=== PATIENT | female | born 1945 | race Caucasian/White ===

== ENCOUNTER → 2016-12-24 | Outpatient (CLI) | payer OTHER ==
[~2016-12-24] MED LIST: ACET-1256 PO; ACET-24 PO; ALBU1AER9 INH; ASPCH81X PO; ATROPINE SULFATE 0.1 MG/ML 5ML SYR ONE; CHOL100010 PO; DOBUTamine HCL 12.5 MG/ML 20 ML VIAL ONE; EZET10TA63 PO; FELO5TAB PO; FLUO40CA8 PO; FLVHFA110 INH; GABA-113 PO; HYDR50TA3 PO; LEVO25TA5 PO; LOSA50TA6 PO; LVNIS40 SQ; METOPROLOL TARTRATE 1 MG/ML VIAL ONE; NTRGSL/4 UT; OMEP20CA59 PO; ONDA8TAB12 PO; OXYSR10 PO; PERFLUTREN LIPID MICROSPHERE (DEFINITY) IV ONE; ROSU40TA PO; RXC5 PO; TRAM-10 PO; TRMCR515 TOP; oxygen
[2016-12-24 11:07] VITALS: BP 122/60; PULSE 83
--- NOTE | 2016-12-24 13:05 | DOBUTAMINE ECHO ---
*NOTICE TO RECEIVING LIBERTARIAN AGENCY This information is strictly Confidential and protected under [place] law. [place] law prohibits you from making any further disclosure of this information unless further disclosure is expressly permitted by the written consent of the person to whom it pertains or is authorized by law. A general authorization for the release of medical or other information is not sufficient for this purpose. Hospital accepts no responsibility if the information is made available to any other person, INCLUDING THE PATIENT. Interpretation Summary * Name: BEATA CALDERON Study Date: 12/24/2016 09:32 AM BP: 146/62 mmHg * Patient Location: [facility] HR: 64 * : 1945 (M/d/yyyy) Gender: Female Height: 63 in * Age: 71 yrs Ethnicity: [place] Weight: 249 lb * Ordering Physician: Bertin Bender DO * Referring Physician: Bertin Bender DO * Performed By: Angel Dent RCS * * Reason For Study: CAD, HTN, TOBACCO USE, CAROTID STENOSIS, PRE-OP * BSA: 2.1 m2 * -- Conclusions -- * Nonischemic dobutamine stress echocardiogram. * No arrhythmias. * Normal HR and BP resposne to dobutamine infusion. * At rest, normal LV chamber size with midl concentric LVH. * Normal LV systolic function, EF 55-60%. * No segmental left ventricular wall motion abnormalities are noted. * Grade I diastolic dysfunction. * No significant valvular pathology. Procedure Details * DOBUTAMINE ECHO, CPT#74831 * ECHO DOPPLER, CPT #96750 * ECHO COLOR FLOW, CPT #98277 * A contrast injection of Definity was performed to improve assessment of LV function. * Contrast was injected into an intravenous site in the left arm. * One vial of Definity ultrasound contrast was diluted in normal saline to a total volume of 10 ml. A total of '10' ml of solution was administered during imaging. * Lot # [id number] of Definity utilized for procedure. * Expiration date . * The attending nurse who injected the contrast agent was Morenita Hauser RN. Left Ventricle * The left ventricle is normal in size. * There is mild concentric left ventricular hypertrophy. * Left ventricular systolic function is normal. * Ejection Fraction = 55-60%. * No segmental left ventricular wall motion abnormalities are noted. * Resting wall motion: Normal. Stress wall motion: Appropriate increase in Left ventricular systolic function and decrease in cavity size. No stress induced segmental wall motion abnormalities. Right Ventricle * The right ventricular cavity size is normal (basal dimension <4.2 cm in right ventricular apical 4-chamber view). * The right ventricular systolic function is normal as assessed by tricuspid annular plane systolic excursion (TAPSE) (normal >1.5 cm). Atria * The left atrial size is normal. * Right atrial size is normal. * No ASD detected; PFO is not assessed. Mitral Valve * The mitral valve is normal in structure and function. Tricuspid Valve * The tricuspid valve is normal in structure and function. Aortic Valve * The aortic valve is not well visualized. * No hemodynamically significant valvular aortic stenosis. * There is no significant aortic regurgitation. Pulmonic Valve * The pulmonary valve is not well seen, but the Doppler examination is normal without significant regurgitation or stenosis. Great Vessels * The aortic root is normal size. Pericardium * There is no pericardial effusion. Stress Parameters * Normal baseline electrocardiogram. * Stress ECG: No ST changes. No arrhythmias. * No arrhythmia were noted with stress. * The stress portion of this study was personally supervised by the undersigned interpreting physician. * Rest heart rate was '64' BPM. * Rest blood pressure was '146/62' * Maximum heart rate achieved was 151 bpm. * Maximum heart rate was 101 % of maximum age-predicted heart rate. * Maximum blood pressure was '146/62' * Maximum Dobutamine infusion rate was '40' mcg/kg/min. * A total of 0.25 mg of intravenous Atropine was used to supplement Dobutamine for heart rate response. * Dobutamine infusion was terminated due to achieving target heart rate * A total of 5 mg of IV Metoprolol was administered to reverse Dobutamine-induced tachycardia. * The patient did not exhibit any symptoms during drug infusion. Left Ventricular Diastolic Function * Grade I diastolic dysfunction, (abnormal relaxation pattern). MMode 2D Measurements and Calculations IVSd 1.3 cm LVIDd 4.3 cm LVIDs 2.9 cm LVPWd 1.3 cm IVS/LVPW 1.1 FS 31.5 % EDV(Teich) 83.5 ml ESV(Teich) 33.6 ml EF(Teich) 59.8 % EDV(cubed) 80.0 ml ESV(cubed) 25.7 ml EF(cubed) 67.9 % LV mass(C)d 208.9 grams LV mass(C)dI 98.4 grams/m\S\2 SV(Teich) 49.9 ml SI(Teich) 23.5 ml/m\S\2 SV(cubed) 54.3 ml SI(cubed) 25.6 ml/m\S\2 LVAd ap4 23.9 cm\S\2 LVLd ap4 8.2 cm EDV(MOD-sp4) 57.4 ml EDV(sp4-el) 59.0 ml LVAs ap4 14.8 cm\S\2 LVLs ap4 7.7 cm ESV(MOD-sp4) 24.0 ml ESV(sp4-el) 24.1 ml EF(MOD-sp4) 58.3 % EF(sp4-el) 59.1 % LVAd ap2 31.8 cm\S\2 LVLd ap2 8.4 cm EDV(MOD-sp2) 101.7 ml EDV(sp2-el) 102.9 ml LVAs ap2 15.6 cm\S\2 LVLs ap2 6.8 cm ESV(MOD-sp2) 29.9 ml ESV(sp2-el) 30.5 ml EF(MOD-sp2) 70.6 % EF(sp2-el) 70.4 % LVLd %diff 1.6 % EDV(MOD-bp) 76.5 ml LVLs %diff -13.74 % ESV(MOD-bp) 28.5 ml EF(MOD-bp) 62.8 % SV(MOD-sp4) 33.4 ml SI(MOD-sp4) 15.8 ml/m\S\2 SV(MOD-sp2) 71.8 ml SI(MOD-sp2) 33.8 ml/m\S\2 SV(MOD-bp) 48.1 ml SI(MOD-bp) 22.6 ml/m\S\2 SV(sp4-el) 34.9 ml SI(sp4-el) 16.4 ml/m\S\2 SV(sp2-el) 72.4 ml SI(sp2-el) 34.1 ml/m\S\2 Doppler Measurements and Calculations MV E max lynne 86.9 cm/sec MV A max lynne 120.4 cm/sec MV E/A 0.72 MV dec time 0.27 sec Ao V2 max 137.2 cm/sec Ao max PG 7.5 mmHg Ao max PG (full) 3.3 mmHg LV V1 max PG 4.3 mmHg LV V1 max 103.2 cm/sec
== END | disposition home or self-care (01) ==
LOC: C.CPL 08:38
PROVIDERS: ATTEND Internal Medicine Cardiovascular Disease
DX: Z01.810 Encounter for preprocedural cardiovascular examination (principal); I25.10 Atherosclerotic heart disease of native coronary artery without angina pectoris; F17.200 Nicotine dependence, unspecified, uncomplicated; I10 Essential (primary) hypertension; I65.23 Occlusion and stenosis of bilateral carotid arteries

== ENCOUNTER 2016-12-29 06:23 | Inpatient (IN) | payer OTHER ==
--- NOTE | 2016-12-20 16:32 | History and Physical ---
History & Physical Date Dec 20, 2016. Chief Complaint bilateral knee pain History of Present Illness Carrie is a pleasant 71-year-old female who presents for preoperative evaluation prior to bilateral knee replacements. Patient states that they have been having pain in this knee for many years now, which has gradually worsened, it has now gotten to the point it is affecting her daily activities including walking, standing, going up and down steps. Patient has tried and failed conservative measures including previous viscosupplementation and PO NSAIDs with no relief. At this point in time, patient has failed conservative measures and would like to proceed with bilateral knee replacements. Past Medical/Surgical History Medical Problems: (1) Benign hypertension (2) Bilateral tubal ligation (3) Contusion of knee, left (4) Contusion of left knee (5) Diabetes mellitus (6) Dyslipidemia (7) GERD (gastroesophageal reflux disease) (8) Hypothyroidism (9) Left knee sprain (10) Left knee sprain (11) Myocardial infarction (12) PNA (pneumonia) (13) Pneumonia (14) spinal surgery (15) Tonsillectomy Additional History Hepatic Disease: No Allergies Coded Allergies: No Known Allergies (Verified , 12/15/15) Home Medications Scheduled Aspirin (Aspirin Chewable), 162 MG PO QAM Cholecalciferol (Vitamin D), 1,000 INTER.UNIT PO QAM Ezetimibe (Zetia), 10 MG PO QAM Felodipine (Plendil), 5 MG PO QAM Fluoxetine (Prozac), 40 MG PO QAM Gabapentin (Neurontin), 300 MG PO TID Hydrochlorothiazide (Hctz), 50 MG PO QAM Levothyroxine Sodium (Levothyroxine Sodium), 25 MCG PO DAILY Losartan Potassium (Cozaar), 50 MG PO QAM Rosuvastatin Calcium (Crestor), 40 MG PO QAM Scheduled PRN Albuterol (Proair Hfa), 2 PUFFS INH QID PRN for Shortness of Breath Fluticasone Propionate (Flovent Hfa), 2 PUFFS INH BID PRN for Shortness of Breath Nitroglycerin (Nitrostat), 0.4 MG UT UD PRN for Chest Pain Omeprazole (Prilosec), 20 MG PO DAILY PRN for Reflux Tramadol (Ultram), 50 MG PO QID PRN for Pain Physical Examination Skin: warm/dry, no rash Eyes: normal inspection, EOMI, sclerae normal ENT: normal ENT inspection, pharynx normal Head: normocephalic, atraumatic Neck: supple, no adenopathy, trachea midline Respiratory/Chest: lungs clear, normal breath sounds, no respiratory distress Abdomen / GI: normal bowel sounds, non tender Addiitonal Comments: Knee Exam Knee ROM L * Active ROM - Flexion: 125 degrees, Extension: 5 degrees, Factors: pain, Description: active painful range of motion. Passive ROM - Flexion: 130 degrees, Extension: 0 degrees, Factors: pain, Description: passive painful range of motion. Knee ROM R * Active ROM - Flexion: 125 degrees, Extension: 5 degrees, Factors: pain, Description: active painful range of motion. Passive ROM - Flexion: 130 degrees, Extension: 0 degrees, Factors: pain, Description: passive painful range of motion. Strength LE Normal Strength Description - Normal lower extremity: Bilateral. Knee * Inspection - Gait: antalgic. Alignment - Right: neutral, Left: neutral. Ecchymosis - Right: negative, Left: negative. Effusion - Right: mild, Left: mild. Swelling - Right: mild, Left: mild. Flexibility - Right: normal, Left: normal. Maximum tenderness - Right: medial joint line, lateral joint line, patella, Left: medial joint line, lateral joint line, patella. Patella exam - Crepitation - Right: mild, Left: mild. Patella position - Right: neutral, Left: neutral. Tilt - Right: equal, Left: equal. [facility] - lateral - Right: Positive, Left: Positive. Santi's - medial - Right: Positive, Left: Positive. Knee Comments No calf tenderness Knee Normal Inspection - Atrophy - Right: Absent, Left: Absent. Skin - Right: Normal, Left: Normal. Patella exam - Apprehension - Right: Negative, Left: Negative. Q-angle - Right: Normal, Left: Normal. Ron's - Right: Negative, Left: Negative. Posterior drawer - Right: Negative, Left: Negative. Anterior drawer - Right: Negative, Left: Negative. Valgus stress - Right: Negative, Left : Negative. Varus stress - Right: Negative, Left: Negative. Extensor lag - Right : Normal, Left: Normal. Knee Xray: Xrays reviewed of bilateral knees showing findings consistent with degenerative joint disease including joint space narrowing, subchondral sclerosis and peripheral osteophyte formation. no acute bony pathology Impression: degenerative joint disease of bilateral knees with no acute bony pathology noted. Diagnosis Bilateral knee DJD -Further care discussed with patient and at this point in time has failed conservative measures and would like to proceed with bilateral total knee replacements. Plan on discharge will be possible rehab placement. DVT prophalaxis with TEDs, SCDs and will also place on aspirin 325 mg p.o. b.i.d. for a month postop. Patient will have follow up appointment in our office two weeks post op for staple/suture removal and re-evaluation. Patient otherwise has no other questions or concerns.
[2016-12-21 11:02] VITALS: BMI 43.0
--- NOTE | 2016-12-21 11:45 | PAT Medication Instructions ---
Service Date Dec 21, 2016. Current Home Medication List Acetaminophen (Tylenol), 2 TAB PO Q8 PRN for Pain Albuterol (Proair Hfa), 2 PUFFS INH QID PRN for Shortness of Breath Aspirin (Aspirin Chewable), 162 MG PO QAM Cholecalciferol (Vitamin D), 1,000 INTER.UNIT PO QAM Ezetimibe (Zetia), 10 MG PO QAM Felodipine (Plendil), 5 MG PO QAM Fluoxetine (Prozac), 40 MG PO QAM Fluticasone Propionate (Flovent Hfa), 2 PUFFS INH BID PRN for Shortness of Breath Gabapentin (Neurontin), 300 MG PO TID Hydrochlorothiazide (Hctz), 50 MG PO QAM Levothyroxine Sodium (Levothyroxine Sodium), 25 MCG PO QAM Losartan Potassium (Cozaar), 50 MG PO QAM Nitroglycerin (Nitrostat), 0.4 MG UT UD PRN for Chest Pain Omeprazole (Prilosec), 20 MG PO DAILY PRN for Reflux Rosuvastatin Calcium (Crestor), 40 MG PO QAM Tramadol (Ultram), 50 MG PO QID PRN for Pain Triamcinolone Acet (Triamcinolone Acetonide), 1 APPLN TOP BID PRN for Affected Skin Folds Medication Instructions For Your Scheduled Surgery Check with surgeon/ichthyologist for instructions: Aspirin (Aspirin Chewable), 162 MG PO QAM - Hold the following medications 24 hours prior to surgery: Triamcinolone Acet (Triamcinolone Acetonide), 1 APPLN TOP BID PRN for Affected Skin Folds - Hold the following medications the morning of surgery: Losartan Potassium (Cozaar), 50 MG PO QAM Hydrochlorothiazide (Hctz), 50 MG PO QAM Cholecalciferol (Vitamin D), 1,000 INTER.UNIT PO QAM - Take the following medications the morning of surgery with a sip of water: Nitroglycerin (Nitrostat), 0.4 MG UT UD PRN for Chest Pain (if needed) Omeprazole (Prilosec), 20 MG PO DAILY PRN for Reflux (if needed) Rosuvastatin Calcium (Crestor), 40 MG PO QAM Tramadol (Ultram), 50 MG PO QID PRN for Pain (okay to take up to 4 hours prior to surgery if needed) Levothyroxine Sodium (Levothyroxine Sodium), 25 MCG PO QAM Fluoxetine (Prozac), 40 MG PO QAM Fluticasone Propionate (Flovent Hfa), 2 PUFFS INH BID PRN for Shortness of Breath (if needed) Gabapentin (Neurontin), 300 MG PO TID Ezetimibe (Zetia), 10 MG PO QAM Albuterol (Proair Hfa), 2 PUFFS INH QID PRN for Shortness of Breath (use if needed; bring with you to hospital morning of surgery) Felodipine (Plendil), 5 MG PO QAM Acetaminophen (Tylenol), 2 TAB PO Q8 PRN for Pain (if needed) - Take the following medications as scheduled the night before surgery: Tramadol (Ultram), 50 MG PO QID PRN for Pain (if needed) Nitroglycerin (Nitrostat), 0.4 MG UT UD PRN for Chest Pain (if needed) Fluticasone Propionate (Flovent Hfa), 2 PUFFS INH BID PRN for Shortness of Breath (if needed) Albuterol (Proair Hfa), 2 PUFFS INH QID PRN for Shortness of Breath (if needed) Acetaminophen (Tylenol), 2 TAB PO Q8 PRN for Pain (if needed) If you have any questions please call us at [phone] or [phone] or [phone]
[2016-12-21 11:50] LABS: BUN/CREATININE RATIO 16.5 (10-20); CREATININE 0.82 mg/dl (0.60-1.20); POTASSIUM 4.4 mmol/L (3.5-5.1)
[2016-12-21 12:27] LABS: BASO % 0.2 %; BASO ABS # 0.02 K/uL (0-0.2); COMPLETE YES; EOS % 2.8 %; HEMATOCRIT 47.2 % (37-47); IG% 0.2 %; LYMPH % 34.3 %; LYMPH ABS # 3.28 K/uL (1.2-3.4); MEAN CELL VOLUME 91.1 fL (80-100); MEAN CORPUSCULAR HEMOGLOBIN 30.3 pg (25-34); MEAN CORPUSCULAR HGB CONC 33.3 g/dl (32-36); MEAN PLATELET VOLUME 10.9 fL (7.4-10.4); MONO % 6.7 %; NEUT % 55.8 %; PLATELET COUNT 224 K/uL (130-400); RED BLOOD COUNT 5.18 M/uL (4.2-5.4); WHITE BLOOD COUNT 9.56 K/uL (4.8-10.8)
[2016-12-21 12:34] LABS: URINE APPEARANCE CLEAR (CLEAR); URINE BILIRUBIN NEG (NEG); URINE COLOR YELLOW; URINE NITRITE NEG (NEG); URINE SPECIFIC GRAVITY 1.011 (1.000-1.030); UROBILINOGEN NEG (NEG); ZZUR CULT IF INDIC CLEAN CATCH NO
[2016-12-21 12:41] LABS: MANUAL MICROSCOPIC REQUIRED? NO; REVIEW REQ? NO
[2016-12-21 12:44] LABS: PARTIAL THROMBOPLASTIN RATIO 1.1; PROTHROMBIN TIME (PATIENT) 10.7 SECONDS (9.0-12.0)
[2016-12-21 13:26] LABS: ESTIMATED AVERAGE GLUCOSE 134 mg/dl; HA1C FLAG Normal (Normal)
[2016-12-21 13:28] LABS: CALCIUM 9.1 mg/dl (8.5-10.1)
[~2016-12-29] VITALS: Ht 162.6 cm; Wt 113.3 kg
[2016-12-29] VITALS (11 sets, daily range): BP systolic 124–147; BP diastolic 66–81; PULSE 57–67; TEMP 36.3–36.7; O2SAT 87–98; BMI 43.0
[~2016-12-29 06:23] MED LIST changes: -ACET-24 PO; +ACETAMINOPHEN 500 MG TAB PO SCH; -ATROPINE SULFATE 0.1 MG/ML 5ML SYR ONE; +CEFAZOLIN 2000 MG/60 ML D5W 60 ML IV SCH; +CeleBREX 200 MG CAP PO SCH; +DEXAMETHASONE 4 MG TAB PO SCH; -DOBUTamine HCL 12.5 MG/ML 20 ML VIAL ONE; +FAMOTIDINE 20 MG TAB PO SCH; +GABAPENTIN 300 MG CAP PO SCH; +LACTATED RINGER'S 1000ML 1,000 ML IV SCH; +LACTATED RINGER'S 1000ML 500 ML IV ONE; -LVNIS40 SQ; +METOCLOPRAMIDE HCL 10 MG TAB PO SCH; -METOPROLOL TARTRATE 1 MG/ML VIAL ONE; -ONDA8TAB12 PO; -OXYSR10 PO; -PERFLUTREN LIPID MICROSPHERE (DEFINITY) IV ONE; +ROPIVACAINE 5MG/ML 30 ML 150 MG, BUPIVACAINE/EPINEPHR 0.5% MPF 30 ML, KETOROLAC TROMETH... INFIL SCH; -RXC5 PO; -oxygen
[2016-12-29] MEDS: TRANEXAMIC ACID INJ 1,000 MG in SODIUM CHLORIDE 0.9% 100ML 100 ML IV SCH ×2 (06:30→08:00)
[2016-12-29] MEDS ORDERED: BUPIVACAINE 0.5 % 5 MG/1 ML PF 10ML VIAL ONE (06:33)
[2016-12-29] MEDS ORDERED: DEXAMETHASONE SOD INJ 4 MG/ML VIAL ONE (06:34)
[2016-12-29] MEDS ORDERED: BUPIVACAINE/EPINEPHRINE 0.25% 1:200,000 30 ML VIAL ONE (06:34)
--- NOTE | 2016-12-29 06:50 | History & Physical Bridge Note ---
H&P Re-Evaluation Bridge Note: I have examined the patient, reviewed the History & Physical and in the interval since the performance of the History & Physical I have noted the following changes of clinical significance: No changes noted
[2016-12-29] MEDS ORDERED: MIDAZOLAM HCL 1 MG/ML 2ML VIAL ONE ×2 (06:59)
[2016-12-29] MEDS ORDERED: POVIDONE-IODINE OP SOLN 30 ML BTL ONE (07:11)
[2016-12-29] MEDS ORDERED: BACITRACIN 50000 UNIT VIAL ONE ×2 (07:11→08:06)
[2016-12-29] MEDS ORDERED: ORTHO JOINT ANESTHETIC ONE (08:06)
[2016-12-29] MEDS ORDERED: ATROPINE SULFATE 0.1 MG/ML 5ML SYR IV PRN (08:45)
[2016-12-29] MEDS ORDERED: PROMETHAZINE HCL INJ 6.25 MG in SODIUM CHLORIDE 0.9% 50ML 50 ML IV PRN (08:45)
[2016-12-29] MEDS ORDERED: FENTANYL CITRATE INJ 50 MCG/1 ML 2 ML VIAL IV PRN (08:45)
[2016-12-29] MEDS ORDERED: EpHEDrine SULFATE INJ 50 MG/ML AMP IV PRN (08:45)
[2016-12-29] MEDS ORDERED: ONDANSETRON INJ 2 MG/ML 2 ML VIAL IV PRN ×2 (08:45→11:00)
--- NOTE | 2016-12-29 10:18 | [facility] Operative Report ---
Operative Report Operative Date Dec 29, 2016. Pre-Operative Diagnosis Bilateral Knee Degenerative Joint Disease Post-Operative Diagnosis DJD with varus alignment bilateral knees Procedure(s) Performed Bilateral total knee Orthoplast Arguello & Nephew nonlocked total knee arthroplasty right size 4 femur 4 tibia Celi 32 patella left size 4 femur 4 tibia 10 Celi [address] Giron Roustabout Hand Surgeon(s) Lenin Morrissey PA-C Estimated Blood Loss 5 mL right knee 5 mL left knee Findings Severe DJD with varus alignment bilateral knees Specimens A: Right Knee Bone and Tissue B: Left Knee Bone and Tissue Drains medium bore Hemovac Anesthesia spinal with bilateral femoral nerve block Complication(s) None Disposition Recovery Room / PACU Indications Severe end-stage DJD with varus alignment bilateral knees Description of Procedure After proper prepping and draping of the bilateral lower extremities, an anterior midline incision was made over the region of the extensor extensor mechanism of the left knee. After meticulous hemostasis was obtained and maintained in subcutaneous tissues a medial parapatellar incision was made The patella was subluxed lateralward the medial lateral gutter were cleaned from any hypertrophic synovitis and scar tissue of the distal femoral block was placed and the distal femoral osteotomy cut was made subsequently the chamfers anterior and posterior osteotomy cuts were made utilizing the 4-in-1 block the tibia was subsequently subluxed anteriorward medial and ateral meniscal remnants were excised in their entirety remnants of the anterior and posterior cruciate ligaments were excised in their entirety excellent exposure of the proximal tibia was obtained the tibial osteotomy guide was placed on the proximal tibial osteotomy cut was made once again the knee was irrigated with copious amounts of sterile saline solution the patella was subsequently everted lateralward thickened scar tissue around the patella was removed the patella was subsequently cut utilizing a freehand technique and was drilled prepared for final preparation and placement of patella socially flexion-extension gaps were checked and the equal and symmetric trials were placed to the appropriate femoral and tibial trials with poly-spacer being placed for equal flexion and extension gaps and full range of motion including extension to 0 and flexion to 140 the trial components after having been taken to recovery range of motion was subsequently removed meticulous hemostasis was obtained and maintained subsequently a knee block injection of joint cocktail including ropivacaine 0.5 % 150 mg. Bupivacaine 0.5% epinephrine 1-200,030 mL's toradol 30 mg dexamethasone 4 mg ketamine 10 mg clonidine 100 micrograms normal saline solution 30 mg was infiltrated into the soft tissues of the posterior knee medial lateral gutters and periosteal synovium special attention was paid to protect neurovascular structures at all times subsequently trial components having been removed the knee was irrigated with sterile saline solution. debris was removed the proximal tibia was subsequently prepared and was made ready for the placement of the tibial component tibial component was also cemented and tamped into position the femoral component was subsequently placed and cemented in the position the patellar component was subsequently cemented in position because hemostasis once again obtained and maintained wound having been thoroughly irrigated with debridement and debridement lavage was performed as well as a medial parapatellar incision closed with #1 Vicryl in interrupted fashion subcutaneous was closed with #2 Vicryl skin was closed with skin clips Next, an anterior midline incision was made over the region of the extensor extensor mechanism of the right knee. After meticulous hemostasis was obtained and maintained in subcutaneous tissues a medial parapatellar incision was made The patella was subluxed lateralward the medial lateral gutter were cleaned from any hypertrophic synovitis and scar tissue of the distal femoral block was placed and the distal femoral osteotomy cut was made subsequently the chamfers anterior and posterior osteotomy cuts were made utilizing the 4-in-1 block the tibia was subsequently subluxed anteriorward medial and ateral meniscal remnants were excised in their entirety remnants of the anterior and posterior cruciate ligaments were excised in their entirety excellent exposure of the proximal tibia was obtained the tibial osteotomy guide was placed on the proximal tibial osteotomy cut was made once again the knee was irrigated with copious amounts of sterile saline solution the patella was subsequently everted lateralward thickened scar tissue around the patella was removed the patella was subsequently cut utilizing a freehand technique and was drilled prepared for final preparation and placement of patella socially flexion-extension gaps were checked and the equal and symmetric trials were placed to the appropriate femoral and tibial trials with poly-spacer being placed for equal flexion and extension gaps and full range of motion including extension to 0 and flexion to 140 the trial components after having been taken to recovery range of motion was subsequently removed meticulous hemostasis was obtained and maintained subsequently a knee block injection of joint cocktail including ropivacaine 0.5 % 150 mg. Bupivacaine 0.5% epinephrine 1-200,030 mL's toradol 30 mg dexamethasone 4 mg ketamine 10 mg clonidine 100 micrograms normal saline solution 30 mg was infiltrated into the soft tissues of the posterior knee medial lateral gutters and periosteal synovium special attention was paid to protect neurovascular structures at all times subsequently trial components having been removed the knee was irrigated with sterile saline solution. debris was removed the proximal tibia was subsequently prepared and was made ready for the placement of the tibial component tibial component was also cemented and tamped into position the femoral component was subsequently placed and cemented in the position the patellar component was subsequently cemented in position because hemostasis once again obtained and maintained wound having been thoroughly irrigated with debridement and debridement lavage was performed as well as a medial parapatellar incision closed with #1 Vicryl in interrupted fashion subcutaneous was closed with #2 Vicryl skin was closed with skin clips.. PA-C was necessary for prepping and drapping as well as wound closure of deep fascia Sub cutaneous tissue and skin and was necessary for the case. A sterile compressive dressings were placed, patient was taken to recovery in stable condition of report dictated by Mack I attest to the content of the Intraoperative Record and any orders documented therein. Any exceptions are noted below. I attest to the content of the Intraoperative Record and any orders documented therein. Any exceptions are noted below.
[2016-12-29] MEDS ORDERED: PROPOFOL IV EMULSION 10 MG/ML 20 ML VIAL IV ONE (10:37)
[2016-12-29] MEDS ORDERED: ALBUTEROL HFA 8 GM INHALER INH PRN (11:00)
[2016-12-29] MEDS ORDERED: BISACODYL 10 MG SUPP PR PRN (11:00)
[2016-12-29] MEDS ORDERED: FLUTICASONE HFA 110MCG INHALER INH PRN (11:00)
[2016-12-29] MEDS ORDERED: NITROGLYCERIN 0.4 MG SL PER TAB CHARGE UT PRN (11:00)
[2016-12-29] MEDS ORDERED: ALUMINUM/MAGNESIUM/SIMETH (MAALOX MAX) 30 ML UDC PO PRN (11:00)
[2016-12-29] MEDS ORDERED: MAGNESIUM HYDROXIDE SUSP 30 ML UDC PO PRN (11:00)
[2016-12-29] MEDS ORDERED: MoRPHine SULFATE 2 MG/ML CARP IV PRN (11:00)
--- NOTE | 2016-12-29 11:43 | DIAGNOSTIC IMAGING REPORT ---
RIGHT KNEE 1 OR 2 VIEWS ROUTINE CLINICAL HISTORY: AP/LATERAL IN PACU RIGHT KNEE Right knee replacement COMPARISON: None. DISCUSSION: Evidence for total right knee replacement. Good contact between prosthetic and underlying bone. Expected soft tissue change. IMPRESSION: Anatomic alignment status post total right knee replacement Electronically signed by: Sy Ernst M.D. 12/29/2016 11:42 AM Dictated Date/Time: 12/29/2016 11:42 AM
--- NOTE | 2016-12-29 11:48 | DIAGNOSTIC IMAGING REPORT ---
LEFT KNEE 1 OR 2 VIEWS ROUTINE CLINICAL HISTORY: AP/LATERAL IN PACU LEFT KNEE COMPARISON: None. DISCUSSION: Evidence for a total left knee replacement. Good contact between prosthetic and underlying bone. Expected soft tissue postoperative change IMPRESSION: Anatomic alignment status post total left knee replacement Electronically signed by: Sy Ernst M.D. 12/29/2016 11:46 AM Dictated Date/Time: 12/29/2016 11:46 AM
[2016-12-29] MEDS: SODIUM CHLORIDE 0.9% 1000ML 1,000 ML IV SCH ×2 (12:10→21:13)
--- NOTE | 2016-12-29 12:40 | Anesthesiology Progress Note ---
Anesthesia Post Op Note Date & Time Dec 29, 2016 at 12:40 Vital Signs Pain Intensity: 0.0 Vital Signs Past 12 Hours Date Time Temp Pulse Resp B/P (MAP) Pulse Ox O2 Delivery O2 Flow Rate FiO2 12/29/16 12:30 60 18 130/71 (90) 98 Nasal Cannula 2.0 12/29/16 12:07 98 Nasal Cannula 2.0 12/29/16 11:59 36.4 16 147/77 (100) 96 Nasal Cannula 2.0 12/29/16 11:50 60 12 159/80 96 Nasal Cannula 2 12/29/16 11:40 36.6 60 12 151/74 96 Nasal Cannula 2 12/29/16 11:30 61 12 155/72 97 Nasal Cannula 2 12/29/16 11:20 65 16 153/75 97 Nasal Cannula 2 12/29/16 11:10 63 10 148/67 99 Mask 10 12/29/16 11:00 65 15 141/63 98 Mask 10 12/29/16 10:53 36.7 62 12 115/57 99 Mask 10 12/29/16 06:47 36.5 66 18 147/81 95 Room Air Notes Mental Status: alert / awake / arousable, participated in evaluation Pt Amnestic to Procedure: Yes Nausea / Vomiting: adequately controlled Pain: adequately controlled Airway Patency, RR, SpO2: stable & adequate BP & HR: stable & adequate Hydration State: stable & adequate Neuraxial Anesthesia: was administered, sensory block is resolving Anesthetic Complications: no major complications apparent
--- NOTE | 2016-12-29 13:07 | Medical Consult ---
Consultation Date of Consultation: Dec 29, 2016. Attending Physician: Bertin Giron D.O. Reason for Consultation: Post Op Medical Management History of Present Illness 71 year old female who is s/p BL TKA today by Dr. Giron. Patient reports increasing knee pain for the past one year. She failed outpatient conservative measures and therefore presented for the planned procedure today. Patient reports her pain is well controlled. She reports some residual numbness to the BLLE. She denies chest pain and shortness of breath. No lightheadedness or dizziness. Denies abdominal pain, nausea, or vomiting. Patient has not voided yet since surgery. Past Medical/Surgical History Medical Problems: (1) Ankle sprain Status: Acute (2) Dyslipidemia Status: Chronic (3) GERD (gastroesophageal reflux disease) Status: Chronic (4) Hypothyroidism Status: Chronic Family History Gynecological problem (cancer) SISTER Social History Smoking Status: Current Every Day Smoker Drug Use: none Allergies Coded Allergies: NSAIDs (Verified Adverse Reaction, Intermediate, Affected kidneys, 12/29/16) Home Medications Tylenol (Acetaminophen) 500 Mg Tab 2 Tab PO Q8 PRN 3 Days Triamcinolone Acetonide (Triamcinolone Acet) 45 Appln/15 Gm Cr 1 Appln TOP BID PRN 30 Days Vitamin D (Cholecalciferol) 1,000 Inter.unit Tab 1,000 Inter.unit PO QAM Aspirin Chewable (Aspirin) 81 Mg Chew 162 Mg PO QAM Proair Hfa (Albuterol) Aers 2 Puffs INH QID PRN Flovent Hfa (Fluticasone Propionate) 120 Puffs/06675 Mcg Aero 2 Puffs INH BID PRN Cozaar (Losartan Potassium) 50 Mg Tab 50 Mg PO QAM Plendil (Felodipine) 5 Mg Tabcr 5 Mg PO QAM Prilosec (Omeprazole) 20 Mg Capcr 20 Mg PO DAILY PRN Prozac (Fluoxetine HCl) 40 Mg Cap 40 Mg PO QAM Hctz (Hydrochlorothiazide) 50 Mg Tab 50 Mg PO QAM Neurontin (Gabapentin) 300 Mg Cap 300 Mg PO TID Zetia (Ezetimibe) 10 Mg Tab 10 Mg PO QAM Crestor (Rosuvastatin Calcium) 40 Mg Tab 40 Mg PO QAM Levothyroxine Sodium 25 Mcg Tab 25 Mcg PO QAM Nitrostat (Nitroglycerin) 0.4 Mg Tab 0.4 Mg UT UD PRN PLACE ONE TABLET UNDER THE TONGUE EVERY 5 MINUTES FOR UP TO 3 DOSES OVER 15 MINUTES IF NEEDED FOR CHEST PAIN Ultram (Tramadol HCl) 50 Mg Tab 50 Mg PO QID PRN PRN PAIN Current Inpatient Medications Current Inpatient Medications Medications (Trade) Dose Ordered Sig/Shivani Route Start Time Stop Time Status Last Admin Dose Admin Cefazolin Sodium 60 ml @ 100 mls/hr PREOP IV 12/29/16 06:00 12/29/16 18:00 12/29/16 08:26 100 MLS/HR Acetaminophen (Tylenol Tab) 1,000 mg PREOP PO 12/29/16 06:00 12/29/16 18:00 12/29/16 07:18 1,000 MG Celecoxib (CeleBREX CAP) 200 mg PREOP PO 12/29/16 06:00 12/29/16 18:00 Dexamethasone (Decadron Tab) 8 mg PREOP PO 12/29/16 06:00 12/29/16 18:00 12/29/16 07:18 8 MG Famotidine (Pepcid Tab) 20 mg PREOP PO 12/29/16 06:00 12/29/16 18:00 12/29/16 07:19 20 MG Gabapentin (Neurontin Cap) 300 mg PREOP PO 12/29/16 06:00 12/29/16 18:00 12/29/16 07:19 300 MG Metoclopramide HCl (Reglan Tab) 10 mg PREOP PO 12/29/16 06:00 12/29/16 18:00 12/29/16 07:19 10 MG Tranexamic Acid 1000 mg/Sodium Chloride 110 ml @ 660 mls/hr TODAY@06,0630 IV 12/29/16 06:00 12/29/16 18:00 12/29/16 08:00 660 MLS/HR Lactated Ringer's 1,000 ml @ 15 mls/hr Q24H IV 12/29/16 06:00 12/30/16 05:59 12/29/16 07:15 15 MLS/HR Fentanyl Citrate (Fentanyl Inj) 50 mcg Q5M PRN IV 12/29/16 08:45 12/29/16 13:45 Ondansetron HCl (Zofran Inj) 4 mg ONE PRN IV 12/29/16 08:45 12/29/16 13:45 Promethazine HCl 6.25 mg/Sodium Chloride 50.25 ml @ 202 mls/hr ONE PRN IV 12/29/16 08:45 12/29/16 13:45 Ephedrine Sulfate (EpHEDrine SULFATE INJ) 5 mg Q5M PRN IV 12/29/16 08:45 12/29/16 13:45 Atropine Sulfate (Atropine Sulfate 0.1MG/Ml Inj) 0.5 mg Q1M PRN IV 12/29/16 08:45 12/29/16 13:45 Albuterol (Ventolin Hfa Inhaler) 2 puffs QID PRN INH 12/29/16 11:00 01/28/17 10:59 UNV Aspirin (Aspirin Chew) 162 mg QAM PO 12/30/16 09:00 01/29/17 08:59 UNV Cholecalciferol (Vitamin D Tab) 1,000 inter.unit QAM PO 12/30/16 09:00 01/29/17 08:59 UNV EZETIMIBE (Zetia Tab) 10 mg QAM PO 12/30/16 09:00 01/29/17 08:59 UNV Felodipine (Plendil Tabcr) 5 mg QAM PO 12/30/16 09:00 01/29/17 08:59 UNV Fluoxetine HCl (Prozac Cap) 40 mg QAM PO 12/30/16 09:00 01/29/17 08:59 UNV Fluticasone Propionate (Flovent Hfa 110MCG Inhaler) 2 puffs BID PRN INH 12/29/16 11:00 01/28/17 10:59 UNV Gabapentin (Neurontin Cap) 300 mg TID PO 12/29/16 14:00 01/28/17 13:59 UNV Levothyroxine Sodium (Synthroid Tab) 25 mcg QAM PO 12/30/16 09:00 01/29/17 08:59 UNV Losartan Potassium (coZAAR TAB) 50 mg QAM PO 12/30/16 09:00 01/29/17 08:59 UNV Nitroglycerin (Nitrostat Tab) 0.4 mg UD PRN UT 12/29/16 11:00 01/28/17 10:59 UNV Rosuvastatin Calcium (Crestor Tab) 40 mg QAM PO 12/30/16 09:00 01/29/17 08:59 UNV Morphine Sulfate (MoRPHine SULFATE INJ) 2 mg Q4HWA PRN IV 12/29/16 11:00 01/12/17 10:59 UNV Morphine Sulfate (MoRPHine SULFATE INJ) 4 mg Q4HWA PRN IV 12/29/16 11:00 01/12/17 10:59 UNV Sodium Chloride 1,000 ml @ 100 mls/hr Q10H IV 12/29/16 10:55 12/30/16 10:54 UNV Cefazolin Sodium 2000 mg/Dextrose 60 ml @ 100 mls/hr Q8H IV 12/29/16 11:00 12/29/16 19:35 UNV Oxycodone HCl (Roxicodone Immediate Rel Tab) 1 TABLET FOR PAIN RATING... Q4H PRN PO 12/29/16 11:00 01/12/17 10:59 UNV Oxycodone HCl (Oxycontin Tab) 10 mg Q12 PO 12/29/16 21:00 01/12/17 20:59 UNV Acetaminophen (Tylenol Tab) 1,000 mg Q8H PO 12/29/16 11:00 01/28/17 10:59 UNV Magnesium Hydroxide (Milk Of Magnesia Susp) 30 ml Q6H PRN PO 12/29/16 11:00 01/28/17 10:59 UNV Bisacodyl (Dulcolax Supp) 10 mg DAILY PRN CO 12/29/16 11:00 01/28/17 10:59 UNV Senna (Senokot Tab) 17.2 mg HS PO 12/29/16 21:00 01/28/17 20:59 UNV Docusate Sodium (coLACE CAP) 100 mg BID PO 12/29/16 21:00 01/28/17 20:59 UNV Al Hydrox/Mg Hydrox/Simethicone (Maalox Max Susp) 15 ml Q4H PRN PO 12/29/16 11:00 01/28/17 10:59 UNV Multivitamins (Multivitamin Tab) 1 tab QAM PO 12/30/16 09:00 01/29/17 08:59 UNV Ondansetron HCl (Zofran Inj) 4 mg Q6H PRN IV 12/29/16 11:00 01/28/17 10:59 UNV Ferrous Gluconate (Ferrous Gluconate Tab) 324 mg TIDM PO 12/29/16 12:00 01/28/17 11:59 UNV Pantoprazole Sodium (Protonix Tab) 40 mg QAM PO 12/30/16 09:00 01/29/17 08:59 UNV Enoxaparin Sodium (Lovenox Inj) 40 mg Q24H SQ 12/30/16 08:00 01/29/17 07:59 UNV Insulin Aspart (novoLOG ASPART) SLIDING SCALE G... ACHS SC 12/29/16 11:00 01/28/17 10:59 UNV Review of Systems ROS per HPI, all other systems reviewed and negative Physical Exam Date Time Temp Pulse Resp B/P (MAP) Pulse Ox O2 Delivery O2 Flow Rate FiO2 12/29/16 12:30 60 18 130/71 (90) 98 Nasal Cannula 2.0 12/29/16 12:20 Nasal Cannula 2.0 12/29/16 12:07 98 Nasal Cannula 2.0 12/29/16 11:59 36.4 16 147/77 (100) 96 Nasal Cannula 2.0 12/29/16 11:50 60 12 159/80 96 Nasal Cannula 2 12/29/16 11:40 36.6 60 12 151/74 96 Nasal Cannula 2 12/29/16 11:30 61 12 155/72 97 Nasal Cannula 2 12/29/16 11:20 65 16 153/75 97 Nasal Cannula 2 12/29/16 11:10 63 10 148/67 99 Mask 10 12/29/16 11:00 65 15 141/63 98 Mask 10 12/29/16 10:53 36.7 62 12 115/57 99 Mask 10 12/29/16 06:47 36.5 66 18 147/81 95 Room Air General Appearance: no apparent distress Head: normocephalic Eyes: normal inspection ENT: hearing grossly normal Neck: supple, no JVD Respiratory/Chest: no respiratory distress, + decreased breath sounds (BL bases ) Cardiovascular: regular rate, rhythm, no edema, normal peripheral pulses Abdomen/GI: normal bowel sounds, non tender, soft Extremities/Musculoskelatal: + pertinent finding (s/p BL knee surgery, drains in place draining bloody drainage, surgical dressings intact, CSM checks intact to BLLE) Neurologic/Psych: no motor/sensory deficits, alert, normal mood/affect, oriented x 3 Skin: normal color, warm/dry Laboratory Results Last 24 Hours Test 12/29/16 06:50 12/29/16 11:02 12/29/16 12:08 12/29/16 12:28 Bedside Glucose 130 mg/dl 159 mg/dl 172 mg/dl Assessment & Plan S/P BL TKA - POD#0 - activity and wound care orders as per ortho - pain control with bowel regimen - PT/OT - monitor H/H for acute blood loss anemia and transfuse blood products PRN CAD, VASCULAR DISEASE - stable, no reports of chest pain - cath 2014 - diffuse non obstructive disease, 11/2016 - negative dobutamine stress - continue ASA and statin HTN - BP controlled, continue felodipine and losartan - holding HCTZ to prevent perioperative dehydration DM - diet controlled - hgb a1c 6.3 11/2016 - will utilize SSI while hospitalized HYPOTHYROIDISM - continue levothyroxine DVT PROPHYLAXIS - deferred to ortho Thank you for this consultation. We will follow the patient with you during their hospital stay. You can reach a member of the [facility] 17/01 via pager @ [phone]. Attending Note: Patient is doing well post OP. Denies chest pain, SOB, dizziness, fever, chills. Pain is controlled at surgical site. Physical Exam: Vitals signs as noted above General Appearance:Moderately built and nourished, no apparent distress Head: normocephalic, Atraumatic Eyes: normal inspection, EOMI, PERRL Neck: supple, Trachea midline Respiratory/Chest: Normal breath sounds, CTA Cardiovascular: S1, S2, No murmur Abdomen/GI:Soft, Non tender, Bowel sounds present Extremities/Musculoskelatal:normal inspection, B/L Knees in surgical dressing Neurologic/Psych:AAOX3, grossly no focal neurological deficits Skin:normal color,warm Assessment and Plan: S/P B/L TKA Monitor Hb for post op anemia Pain control Bowel regimen to prevent constipation PT/OT DVT Px per primary team I personally reviewed the record. Patient is interviewed and examined at bedside. Patient's care is coordinated with Nessa Watson [employer] SUPERVIS[employer]. Please refer to the documentation above for details of patient's presentation and for discussion of other issues.
[2016-12-29] MEDS ORDERED: GLUCAGON FOR INJ 1 MG VIAL SQ PRN (13:15)
[2016-12-29] MEDS ORDERED: GLUCOSE 10 TABS/TUBE PO PRN (13:15)
[2016-12-29] MEDS ORDERED: DEXTROSE 50% 50 ML SYR IV PRN (13:15)
[2016-12-29] MEDS ORDERED: GLUCOSE 40% GEL 15 GM TUBE PO PRN (13:15)
[2016-12-29] MEDS: GABAPENTIN 300 MG CAP PO SCH ×2 (13:59→21:44)
[2016-12-29] MEDS: ACETAMINOPHEN 500 MG TAB PO SCH ×2 (14:03→21:15)
[2016-12-29] MEDS: CEFAZOLIN IV 2,000 MG in DEXTROSE 5% 50ML 50 ML IV SCH ×2 (15:38→23:32)
[2016-12-29] MEDS: MoRPHine SULFATE 4 MG/ML 1 ML CARP\\VIAL IV PRN (17:07)
[2016-12-29] MEDS: FERROUS GLUCONATE 324 MG TAB PO SCH (17:07)
[2016-12-29] MEDS: INSULIN ASPART 100 UNITS/ML 3 ML PEN SC SCH ×2 (17:11→21:00)
[2016-12-29] MEDS: OXYCODONE HCL 10 MG TABCR (OXYCONTIN) PO SCH (21:13)
[2016-12-29] MEDS: SENNA 8.6 MG TAB PO SCH (21:14)
[2016-12-29] MEDS: DOCUSATE SODIUM 100 MG CAP PO SCH (21:14)
[2016-12-29] MEDS: OXYCODONE HCL IR 5 MG TAB (IMMEDIATE RELEASE) PO PRN (23:33)
[2016-12-30] VITALS (8 sets, daily range): BP systolic 97–120; BP diastolic 61–78; PULSE 62–73; TEMP 36.6–37; O2SAT 77–97
[2016-12-30 05:48] LABS: HEMATOCRIT 36.5 % (37-47); MEAN CELL VOLUME 90.1 fL (80-100); MEAN CORPUSCULAR HEMOGLOBIN 29.4 pg (25-34); MEAN CORPUSCULAR HGB CONC 32.6 g/dl (32-36); MEAN PLATELET VOLUME 10.8 fL (7.4-10.4); PLATELET COUNT 200 K/uL (130-400); RED BLOOD COUNT 4.05 M/uL (4.2-5.4); WHITE BLOOD COUNT 15.87 K/uL (4.8-10.8)
[2016-12-30 06:23] LABS: BUN/CREATININE RATIO 29.5 (10-20); CALCIUM 7.7 mg/dl (8.5-10.1); CREATININE 0.96 mg/dl (0.60-1.20); POTASSIUM 4.4 mmol/L (3.5-5.1)
[2016-12-30] MEDS: SODIUM CHLORIDE 0.9% 1000ML 1,000 ML IV SCH (06:24)
[2016-12-30] MEDS: ACETAMINOPHEN 500 MG TAB PO SCH ×3 (06:24→21:21)
--- NOTE | 2016-12-30 06:57 | Orthopedic Progress Note ---
Orthopedic Progress Note Date of Service Dec 30, 2016. Subjective Post OP Day: 1 (s/p Bilateral TKA) Reports: feeling well, pain controlled w PO medications, Denies: complaints, chest pain, SOB, nausea / vomiting, light headedness, calf pain Objective calves soft nontender, N/V intact, capillary refill less than 2 sec., dressing C /D/I, A&O x3, toes mobile, hemovac drainage (Left 150cc/8 hour, Right Knee 225cc /8 hours) Date Time Temp Pulse Resp B/P (MAP) Pulse Ox O2 Delivery O2 Flow Rate FiO2 12/30/16 03:04 36.6 63 14 99/62 (74) 97 Nasal Cannula 2.0 12/29/16 23:10 93 Nasal Cannula 2.0 12/29/16 23:09 36.6 67 16 124/72 (89) 87 Room Air 12/29/16 19:40 Room Air 12/29/16 19:03 36.7 65 18 131/72 (91) 93 Room Air 12/29/16 15:11 Nasal Cannula 2.0 12/29/16 15:08 36.3 57 18 126/73 (90) 97 Nasal Cannula 2.0 12/29/16 13:59 63 18 135/70 (91) 98 Nasal Cannula 2.0 12/29/16 13:03 61 16 133/66 (88) 98 Nasal Cannula 2.0 12/29/16 12:30 60 18 130/71 (90) 98 Nasal Cannula 2.0 12/29/16 12:20 Nasal Cannula 2.0 12/29/16 12:07 98 Nasal Cannula 2.0 12/29/16 11:59 36.4 16 147/77 (100) 96 Nasal Cannula 2.0 12/29/16 11:50 60 12 159/80 96 Nasal Cannula 2 12/29/16 11:40 36.6 60 12 151/74 96 Nasal Cannula 2 12/29/16 11:30 61 12 155/72 97 Nasal Cannula 2 12/29/16 11:20 65 16 153/75 97 Nasal Cannula 2 12/29/16 11:10 63 10 148/67 99 Mask 10 12/29/16 11:00 65 15 141/63 98 Mask 10 12/29/16 10:53 36.7 62 12 115/57 99 Mask 10 Laboratory Results 24 Hours: Test 7/6/17 05:22 Hematocrit 36.5 % Hemoglobin 11.9 g/dL Assessment & Plan Assessment: POD #1 s/p Bilateral TKA -patient requesting HHPT, will make arrangements with SS -dvt proph with Lovenox, ASA -PT today Benign hypertension Diabetes mellitus Dyslipidemia GERD (gastroesophageal reflux disease) Hypothyroidism Myocardial infarction Inhouse Planning DVT Prophylaxis: TEDs, SCDs, ASA, Lovenox Discharge Planning Discharge Planning: home with home health
[2016-12-30] MEDS: LEVOTHYROXINE 25 MCG TAB PO SCH (07:11)
[2016-12-30] MEDS: INSULIN ASPART 100 UNITS/ML 3 ML PEN SC SCH ×4 (08:00→21:00)
[2016-12-30] MEDS: ENOXAPARIN 40 MG/0.4 ML SYR SQ SCH (08:34)
[2016-12-30] MEDS: GABAPENTIN 300 MG CAP PO SCH ×3 (08:34→21:20)
[2016-12-30] MEDS: PANTOprazole SOD 40 MG TAB PO SCH (08:34)
[2016-12-30] MEDS: LOSARTAN POTASSIUM 50 MG TAB PO SCH (08:34)
[2016-12-30] MEDS: MULTIVITAMIN TAB PO SCH (08:34)
[2016-12-30] MEDS: FERROUS GLUCONATE 324 MG TAB PO SCH ×3 (08:35→17:14)
[2016-12-30] MEDS: ROSUVASTATIN CALCIUM 20 MG TAB PO SCH (08:35)
[2016-12-30] MEDS: DOCUSATE SODIUM 100 MG CAP PO SCH ×2 (09:11→21:20)
[2016-12-30] MEDS: EZETIMIBE 10MG TAB PO SCH (09:11)
[2016-12-30] MEDS: OXYCODONE HCL 10 MG TABCR (OXYCONTIN) PO SCH ×2 (09:11→21:19)
[2016-12-30] MEDS: FLUOXETINE HCL 20 MG CAP PO SCH (09:11)
[2016-12-30] MEDS: FELODIPINE 5 MG TABCR PO SCH (09:11)
[2016-12-30] MEDS: CHOLECALCIFEROL 1000 INTER.UNIT TAB PO SCH (09:11)
[2016-12-30] MEDS: ASPIRIN 81 MG ECTAB PO SCH (09:12)
[2016-12-30] MEDS: OXYCODONE HCL IR 5 MG TAB (IMMEDIATE RELEASE) PO PRN ×3 (11:42→21:19)
[2016-12-30] MEDS: MoRPHine SULFATE 4 MG/ML 1 ML CARP\\VIAL IV PRN (12:32)
--- NOTE | 2016-12-30 13:08 | Discharge Instructions ---
Discharge Instructions Date of Service Dec 30, 2016. Admission Reason for Admission: Bilateral Knee Osteoarthritis Discharge Discharge Diagnosis / Problem: Bilateral Total Knee Replacements Discharge Goals Goal(s): Decrease discomfort, Improve function, Increase independence Activity Recommendations Activity Limitations: as noted below Weightbearing Status: Left weightbearing (as tolerated), Right weightbearing ( as tolerated) . Instructions / Follow-Up Instructions / Follow-Up ACTIVITY RECOMMENDATIONS: SELF CARE INSTRUCTIONS AFTER TOTAL KNEE REPLACEMENT A. You may need to continue a physical therapy program after discharge from the hospital. There are several options available to you. Your doctor will assist you in selecting the best one for you. 1. An out-patient facility 2 to 3 times a week for therapy or home therapy. 2. Continue working on all exercises taught to you in the hospital. Your goals should be to increase bending of your knee to 90 degrees and beyond and to fully straighten your knee. B. You may progress at your own pace from walking with a walker or crutches to a cane; then to no assistive devices. C. Make walking a part of your daily routine. Be up as much as comfortable with rest periods throughout the day. Rest with leg elevation is very important. Use the ice wrap frequently for the first 3-4 weeks. D. There are no restrictions on activities. You may ride in a car, shop, participate in hematologist oncologist and all social activities. E. Wear the long elastic stockings (EDGAR hose) 20 hours a day for 2 weeks after surgery. They can be removed several times a day for laundering and for a bath. F. You may shower, no tub baths until cleared by your doctor. SPECIAL CARE INSTRUCTIONS: VERY IMPORTANT TO READ AND REVIEW A. There are a few signs you need to watch for after you are home. Call [facility] if you notice any of the followin. Increased severe knee pain. Some pain is expected especially when you exercise. 2. Increased swelling in your leg or knee; pain or swelling of the calf muscle in either lower leg. 3. Any fluid drainage from the incision. 4. Shortness of breath or chest pain. B. Please call [facility] at if you have any concerns or questions about your operation or recovery. The doctor or his nurse will return your call promptly. C. You must take antibiotics before dental work, bladder, bowel or other surgery. Your doctor will provide you with a permanent care to carry describing this precaution. IMPORTANT: * REMEMBER TO TAKE ASPIRIN, 81 MG, TWICE DAILY FOR 4 WEEKS UNLESS OTHERWISE DIRECTED. THIS IS YOUR BLOOD THINNER. * HIGH RISK PATIENTS MAY BE PRESCRIBED A STRONGER BLOOD THINNER. THIS WILL BE PROVIDED AT DISCHARGE. * CALL IF INCREASED PAIN, REDNESS, DRAINAGE OR FEVER GREATER THAT 101. * WEAR EDGAR HOSE 20 HOURS PER DAY FOR 2 WEEKS. * YOU MAY HAVE A LARGE BAND-AID LIKE DRESSING (SILVERON). THIS WILL REMAIN ON YOUR INCISION FOR 7 DAYS, THEN CAN BE REMOVED. IF INCISION IS LEAKING THROUGH DRESSING, CALL THE OFFICE . FOLLOW UP VISIT: If appointment is not already scheduled: Please call [facility] to make a follow-up appointment for 2 weeks after your surgery at . Current Hospital Diet Patient's current hospital diet: Diabetes Type 2 Diet Discharge Diet Recommended Diet: Diabetes Type 2 Diet Procedures Procedures Performed: Bilateral Total Knee Arthroplasty, Cemented Pending Studies Studies pending at discharge: no Laboratory Results Hemoglobin A1c Test 12/21/16 10:55 Range/Units Estimated Average Glucose 134 mg/dl Hemoglobin A1c 6.3 H 4.5-5.6 % Medical Emergencies . Who to Call and When: Medical Emergencies: If at any time you feel your situation is an emergency, please call 311 immediately. . Non-Emergent Contact Non-Emergency issues call your: Primary Care Provider, Surgeon . "Provider Documentation" section prepared by Sy Hernández. . VTE Core Measure Inpt VTE Proph given/why not?: Enoxaparin (Lovenox)SQ (40mg subcutaneous daily x 2 weeks), Susanne Urbina SCD's [place] Drug Monitoring Program Search Results: patient reviewed within database, no issues identified
--- NOTE | 2016-12-30 17:10 | Progress Note ---
Medicine Progress Note Date & Time of Visit: Dec 30, 2016 at 17:00. Subjective Patient reports feeling well other than pain in her left leg. Her right leg has not been painful. She tolerated therapy today and had pain afterwards. No overnight events noted. Tolerating PO. Denies any N/V, CARLIN, lightheadedness/ dizziness, SOB, or CP. Pain medication has been effective at relieving her pain. Objective Last 8 Hrs Date Time Temp Pulse Resp B/P (MAP) Pulse Ox O2 Delivery O2 Flow Rate FiO2 12/30/16 15:40 37.0 67 18 99/61 (74) 95 Nasal Cannula 2.0 12/30/16 12:00 36.7 67 22 120/72 (88) 94 Room Air 12/30/16 11:38 36.7 65 22 120/78 (92) 94 Room Air Physical Exam: GENERAL: Patient is in no acute distress. HEENT: No acute trauma, normocephalic, mucous membranes moist, no nasal congestion, no scleral icterus. NECK: No stridor, trachea is midline. LUNGS: Clear to auscultation bilaterally, no wheeze, no rhonchi, breath sounds equal. HEART: Without murmurs gallops or rubs, regular rate and rhythm. ABDOMEN: Soft, nontender, bowel sounds positive EXTREMITIES: No cyanosis; trace LE edema NEUROLOGIC: Oriented x 3, no acute motor or sensory deficits, no focal weakness. SKIN: No rash, no jaundice, no diaphoresis. Laboratory Results: Last 24 Hours Test 12/29/16 17:08 12/29/16 20:33 12/30/16 05:22 12/30/16 08:13 Bedside Glucose 206 mg/dl 173 mg/dl 164 mg/dl White Blood Count 15.87 K/uL Red Blood Count 4.05 M/uL Hemoglobin 11.9 g/dL Hematocrit 36.5 % Mean Corpuscular Volume 90.1 fL Mean Corpuscular Hemoglobin 29.4 pg Mean Corpuscular Hemoglobin Concent 32.6 g/dl RDW Standard Deviation 46.5 fL RDW Coefficient of Variation 13.9 % Platelet Count 200 K/uL Mean Platelet Volume 10.8 fL Sodium Level 139 mmol/L Potassium Level 4.4 mmol/L Chloride Level 106 mmol/L Carbon Dioxide Level 27 mmol/L Anion Gap 6.0 mmol/L Blood Urea Nitrogen 28 mg/dl Creatinine 0.96 mg/dl Est Creatinine Clear Calc Drug Dose 66.3 ml/min Estimated GFR () 69.0 Estimated GFR (Non- 59.5 BUN/Creatinine Ratio 29.5 Random Glucose 154 mg/dl Calcium Level 7.7 mg/dl Chemistry Specimen Hemolysis Test 12/30/16 12:08 Bedside Glucose 143 mg/dl Assessment & Plan POSTOPERATIVE S/P BILATERAL TKA: -POD#1 -DVT prophylaxis, pain control, activity, and wound care orders as per ortho -on bowel regimen -monitor H&H for acute blood loss anemia; Hb 11.9 today without any symptoms -incentive spirometry encouraged KNOWN CAD and PVD: -stable, no reports of chest pain -prior cath in 2014 - diffuse non obstructive disease, 11/2016 - negative dobutamine stress -continue ASA and statin HTN: -BP controlled, continue felodipine and losartan -continue holding HCTZ until discharge DM TYPE II: -diet controlled -HbA1c: 6.3% -correction scale insulin while hospitalized HYPOTHYROIDISM: -continue levothyroxine Current Inpatient Medications: Current Inpatient Medications Medications (Trade) Dose Ordered Sig/Shivani Route Start Time Stop Time Status Last Admin Dose Admin Albuterol (Ventolin Hfa Inhaler) 2 puffs QID PRN INH 12/29/16 11:00 01/28/17 10:59 Aspirin (Ecotrin Tab) 162 mg QAM PO 12/30/16 09:00 01/29/17 08:59 12/30/16 09:12 162 MG Cholecalciferol (Vitamin D Tab) 1,000 inter.unit QAM PO 12/30/16 09:00 01/29/17 08:59 12/30/16 09:11 1,000 INTER.UNIT EZETIMIBE (Zetia Tab) 10 mg QAM PO 12/30/16 09:00 01/29/17 08:59 12/30/16 09:11 10 MG Felodipine (Plendil Tabcr) 5 mg QAM PO 12/30/16 09:00 01/29/17 08:59 12/30/16 09:11 5 MG Fluoxetine HCl (Prozac Cap) 40 mg QAM PO 12/30/16 09:00 01/29/17 08:59 12/30/16 09:11 40 MG Fluticasone Propionate (Flovent Hfa 110MCG Inhaler) 2 puffs BID PRN INH 12/29/16 11:00 01/28/17 10:59 Gabapentin (Neurontin Cap) 300 mg TID PO 12/29/16 14:00 01/28/17 13:59 12/30/16 13:33 300 MG Levothyroxine Sodium (Synthroid Tab) 25 mcg DAILYBB PO 12/30/16 06:00 01/29/17 05:59 12/30/16 07:11 25 MCG Losartan Potassium (coZAAR TAB) 50 mg QAM PO 12/30/16 09:00 01/29/17 08:59 12/30/16 08:34 50 MG Nitroglycerin (Nitrostat Tab) 0.4 mg UD PRN UT 12/29/16 11:00 01/28/17 10:59 Rosuvastatin Calcium (Crestor Tab) 40 mg QAM PO 12/30/16 09:00 01/29/17 08:59 12/30/16 08:35 40 MG Morphine Sulfate (MoRPHine SULFATE INJ) 2 mg Q4HWA PRN IV 12/29/16 11:00 01/12/17 10:59 Morphine Sulfate (MoRPHine SULFATE INJ) 4 mg Q4HWA PRN IV 12/29/16 11:00 01/12/17 10:59 12/30/16 12:32 4 MG Oxycodone HCl (Roxicodone Immediate Rel Tab) 1 TABLET FOR PAIN RATING... Q4H PRN PO 12/29/16 11:00 01/12/17 10:59 12/30/16 11:42 10 MG Oxycodone HCl (Oxycontin Tab) 10 mg Q12 PO 12/29/16 21:00 01/12/17 20:59 12/30/16 09:11 10 MG Acetaminophen (Tylenol Tab) 1,000 mg Q8 PO 12/29/16 14:00 01/28/17 13:59 12/30/16 13:33 1,000 MG Magnesium Hydroxide (Milk Of Magnesia Susp) 30 ml Q6H PRN PO 12/29/16 11:00 01/28/17 10:59 Bisacodyl (Dulcolax Supp) 10 mg DAILY PRN [place] 12/29/16 11:00 01/28/17 10:59 Senna (Senokot Tab) 17.2 mg HS PO 12/29/16 21:00 01/28/17 20:59 12/29/16 21:14 17.2 MG Docusate Sodium (coLACE CAP) 100 mg BID PO 12/29/16 21:00 01/28/17 20:59 12/30/16 09:11 100 MG Al Hydrox/Mg Hydrox/Simethicone (Maalox Max Susp) 15 ml Q4H PRN PO 12/29/16 11:00 01/28/17 10:59 Multivitamins (Multivitamin Tab) 1 tab QAM PO 12/30/16 09:00 01/29/17 08:59 12/30/16 08:34 1 TAB Ondansetron HCl (Zofran Inj) 4 mg Q6H PRN IV 12/29/16 11:00 01/28/17 10:59 Ferrous Gluconate (Ferrous Gluconate Tab) 324 mg TIDM PO 12/29/16 17:45 01/28/17 17:44 12/30/16 12:32 324 MG Pantoprazole Sodium (Protonix Tab) 40 mg QAM PO 12/30/16 09:00 01/29/17 08:59 12/30/16 08:34 40 MG Enoxaparin Sodium (Lovenox Inj) 40 mg Q24H SQ 12/30/16 08:00 01/29/17 07:59 12/30/16 08:34 40 MG Insulin Aspart (novoLOG ASPART) SLIDING SCALE G... ACHS SC 12/29/16 17:15 01/28/17 17:14 12/29/16 17:11 1 UNITS Glucose (Glucose 40% Gel) 15-30 GRAMS 15 GRAMS... UD PRN PO 12/29/16 13:15 01/28/17 13:14 Glucose (Glucose Chew Tab) 4-8 Tablets 4 Tabl... UD PRN PO 12/29/16 13:15 01/28/17 13:14 Dextrose (Dextrose 50% 50ML Syringe) 25-50ML OF 50% DW IV FOR... UD PRN IV 12/29/16 13:15 01/28/17 13:14 Glucagon (Glucagon Inj) 1 mg UD PRN SQ 12/29/16 13:15 01/28/17 13:14
[2016-12-30] MEDS: SENNA 8.6 MG TAB PO SCH (21:20)
[2016-12-31] VITALS (9 sets, daily range): BP systolic 99–136; BP diastolic 64–74; PULSE 72–92; TEMP 36.7–37.2; O2SAT 88–98; Ht 162.6 cm; Wt 113.3 kg
[2016-12-31] MEDS: ACETAMINOPHEN 500 MG TAB PO SCH ×3 (05:34→22:34)
[2016-12-31] MEDS: LEVOTHYROXINE 25 MCG TAB PO SCH (06:35)
--- NOTE | 2016-12-31 06:59 | Orthopedic Progress Note ---
Orthopedic Progress Note Date of Service Dec 31, 2016. Subjective Post OP Day: 2 Reports: feeling well, pain controlled w PO medications, Denies: complaints, chest pain, SOB, nausea / vomiting, light headedness, calf pain Objective calves soft nontender, N/V intact, capillary refill less than 2 sec., dressing C /D/I (silverlon intact), A&O x3, toes mobile Date Time Temp Pulse Resp B/P (MAP) Pulse Ox O2 Delivery O2 Flow Rate FiO2 12/31/16 06:01 36.9 76 17 105/66 (79) 97 Nasal Cannula 2.0 12/31/16 01:15 Nasal Cannula 2.0 12/30/16 23:19 94 Nasal Cannula 2.0 12/30/16 23:18 37.0 73 16 97/61 (73) 77 Room Air 12/30/16 15:50 Room Air 12/30/16 15:40 37.0 67 18 99/61 (74) 95 Nasal Cannula 2.0 12/30/16 12:00 36.7 67 22 120/72 (88) 94 Room Air 12/30/16 11:38 36.7 65 22 120/78 (92) 94 Room Air 12/30/16 08:16 97 Nasal Cannula 2.0 12/30/16 07:45 36.8 62 24 110/72 (85) 97 Nasal Cannula 2.0 12/30/16 07:25 Nasal Cannula 2.0 Assessment & Plan Assessment: POD #2 s/p Bilateral TKA -patient requesting HHPT, will make arrangements with SS -dvt proph with Lovenox, ASA -PT today O2 sats dropped last night on RA, placed back on 2L and improved. discussed trial today without the O2 and see how she responds. may have to go home with O2 Benign hypertension Diabetes mellitus Dyslipidemia GERD (gastroesophageal reflux disease) Hypothyroidism Myocardial infarction Inhouse Planning DVT Prophylaxis: TEDs, SCDs, ASA, Lovenox Discharge Planning Discharge Planning: home with home health
[2016-12-31] MEDS: INSULIN ASPART 100 UNITS/ML 3 ML PEN SC SCH ×5 (07:06→21:00)
[2016-12-31] MEDS: ENOXAPARIN 40 MG/0.4 ML SYR SQ SCH (07:45)
[2016-12-31] MEDS: FERROUS GLUCONATE 324 MG TAB PO SCH ×3 (07:48→19:29)
[2016-12-31] MEDS: DOCUSATE SODIUM 100 MG CAP PO SCH ×2 (07:49→22:33)
[2016-12-31] MEDS: ROSUVASTATIN CALCIUM 20 MG TAB PO SCH (07:53)
[2016-12-31] MEDS: ASPIRIN 81 MG ECTAB PO SCH (07:53)
[2016-12-31] MEDS: MULTIVITAMIN TAB PO SCH (07:54)
[2016-12-31] MEDS: GABAPENTIN 300 MG CAP PO SCH ×3 (07:54→22:33)
[2016-12-31] MEDS: OXYCODONE HCL 10 MG TABCR (OXYCONTIN) PO SCH ×2 (07:55→22:34)
[2016-12-31] MEDS: PANTOprazole SOD 40 MG TAB PO SCH (07:56)
[2016-12-31] MEDS: CHOLECALCIFEROL 1000 INTER.UNIT TAB PO SCH (07:57)
[2016-12-31] MEDS: FLUOXETINE HCL 20 MG CAP PO SCH (07:57)
[2016-12-31] MEDS: EZETIMIBE 10MG TAB PO SCH (07:59)
[2016-12-31] MEDS: LOSARTAN POTASSIUM 50 MG TAB PO SCH (09:00)
[2016-12-31] MEDS: FELODIPINE 5 MG TABCR PO SCH (09:00)
--- NOTE | 2016-12-31 18:46 | Progress Note ---
Medicine Progress Note Date & Time of Visit: Dec 31, 2016 at 18:46. Subjective Patient denies any complaints, states her pain is well controlled. She denies feeling SOB but was found to desaturate last night. No CP, cough, CARLIN, dizziness/ lightheadedness. Denies any dysphagia and has been eating and drinking normally. No aspiration events. Objective Last 8 Hrs Date Time Temp Pulse Resp B/P (MAP) Pulse Ox O2 Delivery O2 Flow Rate FiO2 12/31/16 15:13 36.7 72 20 114/72 (86) 96 Nasal Cannula 2.0 12/31/16 12:22 136/74 (94) 12/31/16 11:15 98 Nasal Cannula 2.0 12/31/16 11:10 88 Room Air Physical Exam: GENERAL: Patient is in no acute distress. HEENT: No acute trauma, normocephalic, mucous membranes moist, no nasal congestion, no scleral icterus. NECK: No stridor, trachea is midline. LUNGS: Clear to auscultation bilaterally, no wheeze, no rhonchi, breath sounds equal. HEART: Without murmurs gallops or rubs, regular rate and rhythm. ABDOMEN: Soft, nontender, bowel sounds positive EXTREMITIES: No cyanosis; trace LE edema NEUROLOGIC: Oriented x 3, no acute motor or sensory deficits, no focal weakness. SKIN: No rash, no jaundice, no diaphoresis. Laboratory Results: Last 24 Hours Test 12/30/16 20:46 12/31/16 06:33 12/31/16 12:06 12/31/16 16:49 Bedside Glucose 133 mg/dl 128 mg/dl 163 mg/dl 149 mg/dl Assessment & Plan POSTOPERATIVE S/P BILATERAL TKA: -POD#2 -DVT prophylaxis, pain control, activity, and wound care orders as per ortho -on bowel regimen -monitor H&H for acute blood loss anemia; Hb 11.9 today without any symptoms -incentive spirometry encouraged HYPOXIA: -postoperative has required oxygen -likely multifactorial related to post operative, and patient likely has COPD although has not been formally evaluated -resume inhaled steroids and bronchodilator -home oxygen eval; ok to discharge on home oxygen and follow up with her PCP -smoking cessation as patient admits to being an active smoker KNOWN CAD and PVD: -stable, no reports of chest pain -prior cath in 2014 - diffuse non obstructive disease, 11/2016 - negative dobutamine stress -continue ASA and statin HTN: -BP controlled, continue felodipine and losartan -continue holding HCTZ until discharge DM TYPE II: -diet controlled -HbA1c: 6.3% -correction scale insulin while hospitalized HYPOTHYROIDISM: -continue levothyroxine Current Inpatient Medications: Current Inpatient Medications Medications (Trade) Dose Ordered Sig/Shivani Route Start Time Stop Time Status Last Admin Dose Admin Albuterol (Ventolin Hfa Inhaler) 2 puffs QID PRN INH 12/29/16 11:00 01/28/17 10:59 Aspirin (Ecotrin Tab) 162 mg QAM PO 12/30/16 09:00 01/29/17 08:59 12/31/16 07:53 162 MG Cholecalciferol (Vitamin D Tab) 1,000 inter.unit QAM PO 12/30/16 09:00 01/29/17 08:59 12/31/16 07:57 1,000 INTER.UNIT EZETIMIBE (Zetia Tab) 10 mg QAM PO 12/30/16 09:00 01/29/17 08:59 12/31/16 07:59 10 MG Felodipine (Plendil Tabcr) 5 mg QAM PO 12/30/16 09:00 01/29/17 08:59 12/30/16 09:11 5 MG Fluoxetine HCl (Prozac Cap) 40 mg QAM PO 12/30/16 09:00 01/29/17 08:59 12/31/16 07:57 40 MG Gabapentin (Neurontin Cap) 300 mg TID PO 12/29/16 14:00 01/28/17 13:59 12/31/16 13:36 300 MG Levothyroxine Sodium (Synthroid Tab) 25 mcg DAILYBB PO 12/30/16 06:00 01/29/17 05:59 12/31/16 06:35 25 MCG Losartan Potassium (coZAAR TAB) 50 mg QAM PO 12/30/16 09:00 01/29/17 08:59 12/30/16 08:34 50 MG Nitroglycerin (Nitrostat Tab) 0.4 mg UD PRN UT 12/29/16 11:00 01/28/17 10:59 Rosuvastatin Calcium (Crestor Tab) 40 mg QAM PO 12/30/16 09:00 01/29/17 08:59 7/7/17 07:53 40 MG Morphine Sulfate (MoRPHine SULFATE INJ) 2 mg Q4HWA PRN IV 12/29/16 11:00 01/12/17 10:59 Morphine Sulfate (MoRPHine SULFATE INJ) 4 mg Q4HWA PRN IV 12/29/16 11:00 01/12/17 10:59 12/30/16 12:32 4 MG Oxycodone HCl (Roxicodone Immediate Rel Tab) 1 TABLET FOR PAIN RATING... Q4H PRN PO 12/29/16 11:00 01/12/17 10:59 12/30/16 21:19 10 MG Oxycodone HCl (Oxycontin Tab) 10 mg Q12 PO 12/29/16 21:00 01/12/17 20:59 12/31/16 07:55 10 MG Acetaminophen (Tylenol Tab) 1,000 mg Q8 PO 12/29/16 14:00 01/28/17 13:59 12/31/16 13:38 1,000 MG Magnesium Hydroxide (Milk Of Magnesia Susp) 30 ml Q6H PRN PO 12/29/16 11:00 01/28/17 10:59 Bisacodyl (Dulcolax Supp) 10 mg DAILY PRN NV 12/29/16 11:00 01/28/17 10:59 Senna (Senokot Tab) 17.2 mg HS PO 12/29/16 21:00 01/28/17 20:59 12/30/16 21:20 17.2 MG Docusate Sodium (coLACE CAP) 100 mg BID PO 12/29/16 21:00 01/28/17 20:59 12/31/16 07:49 100 MG Al Hydrox/Mg Hydrox/Simethicone (Maalox Max Susp) 15 ml Q4H PRN PO 12/29/16 11:00 01/28/17 10:59 Multivitamins (Multivitamin Tab) 1 tab QAM PO 12/30/16 09:00 01/29/17 08:59 12/31/16 07:54 1 TAB Ondansetron HCl (Zofran Inj) 4 mg Q6H PRN IV 12/29/16 11:00 01/28/17 10:59 Ferrous Gluconate (Ferrous Gluconate Tab) 324 mg TIDM PO 12/29/16 17:45 01/28/17 17:44 12/31/16 12:35 324 MG Pantoprazole Sodium (Protonix Tab) 40 mg QAM PO 12/30/16 09:00 01/29/17 08:59 12/31/16 07:56 40 MG Enoxaparin Sodium (Lovenox Inj) 40 mg Q24H SQ 12/30/16 08:00 01/29/17 07:59 12/31/16 07:45 40 MG Insulin Aspart (novoLOG ASPART) SLIDING SCALE G... ACHS SC 12/29/16 17:15 01/28/17 17:14 12/29/16 17:11 1 UNITS Glucose (Glucose 40% Gel) 15-30 GRAMS 15 GRAMS... UD PRN PO 12/29/16 13:15 01/28/17 13:14 Glucose (Glucose Chew Tab) 4-8 Tablets 4 Tabl... UD PRN PO 12/29/16 13:15 01/28/17 13:14 Dextrose (Dextrose 50% 50ML Syringe) 25-50ML OF 50% DW IV FOR... UD PRN IV 12/29/16 13:15 01/28/17 13:14 Glucagon (Glucagon Inj) 1 mg UD PRN SQ 12/29/16 13:15 01/28/17 13:14 Fluticasone Propionate (Flovent Hfa 110MCG Inhaler) 2 puffs BID INH 12/31/16 21:00 01/28/17 10:59 Albuterol/ Ipratropium (Combivent Respimat Inh) 1 puffs QID INH 12/31/16 21:00 01/30/17 20:59
[2016-12-31] MEDS: FLUTICASONE HFA 110MCG INHALER INH SCH (21:00)
[2016-12-31] MEDS: IPRATROPIUM BROMIDE/ALBUTEROL respimat INH INH SCH (22:32)
[2016-12-31] MEDS: SENNA 8.6 MG TAB PO SCH (22:33)
[2016-12-31] MEDS: OXYCODONE HCL IR 5 MG TAB (IMMEDIATE RELEASE) PO PRN (22:34)
[2017-01-01 05:59] LABS: HEMATOCRIT 27.7 % (37-47); MEAN CELL VOLUME 89.9 fL (80-100); MEAN CORPUSCULAR HEMOGLOBIN 28.6 pg (25-34); MEAN CORPUSCULAR HGB CONC 31.8 g/dl (32-36); MEAN PLATELET VOLUME 10.8 fL (7.4-10.4); PLATELET COUNT 178 K/uL (130-400); RED BLOOD COUNT 3.08 M/uL (4.2-5.4); WHITE BLOOD COUNT 13.15 K/uL (4.8-10.8)
[2017-01-01 06:28] LABS: CREATININE 0.79 mg/dl (0.60-1.20)
[2017-01-01] MEDS: LEVOTHYROXINE 25 MCG TAB PO SCH (06:34)
[2017-01-01] MEDS: ACETAMINOPHEN 500 MG TAB PO SCH (06:35)
--- NOTE | 2017-01-01 07:44 | Orthopedic Progress Note ---
Orthopedic Progress Note Date of Service Jan 01, 2017. Subjective Post OP Day: 3 Reports: feeling well (Pt has had decreased O2 sats this admission, denies SOB, CP, dizziness) Objective N/V intact, dressing C/D/I, toes mobile Date Time Temp Pulse Resp B/P (MAP) Pulse Ox O2 Delivery O2 Flow Rate FiO2 12/31/16 23:55 96 Nasal Cannula 2.0 12/31/16 23:30 37.2 92 16 109/69 (82) 97 Nasal Cannula 2.0 12/31/16 16:15 Nasal Cannula 2.0 12/31/16 15:13 36.7 72 20 114/72 (86) 96 Nasal Cannula 2.0 12/31/16 12:22 136/74 (94) 12/31/16 11:15 98 Nasal Cannula 2.0 12/31/16 11:10 88 Room Air 12/31/16 08:37 95 Nasal Cannula 2.0 12/31/16 08:09 36.8 80 99/64 (76) 94 Nasal Cannula 2.0 Laboratory Results 24 Hours: Test 01/01/17 05:09 Hematocrit 27.7 % Hemoglobin 8.8 g/dL Assessment & Plan Assessment: POD #3 s/p Bilateral TKA, acute blood loss anemia, asympto -patient requesting HHPT, will make arrangements with SS -dvt proph with Lovenox, ASA -PT today O2 sats dropped last night on RA, placed back on 2L and improved. discussed trial today without the O2 and see how she responds. may have to go home with O2 Benign hypertension Diabetes mellitus Dyslipidemia GERD (gastroesophageal reflux disease) Hypothyroidism Myocardial infarction Inhouse Planning DVT Prophylaxis: TEDs, SCDs, ASA, Lovenox Discharge Planning Discharge Planning: home with home health
[2017-01-01] MEDS ORDERED: RXC5 PO (07:47)
[2017-01-01] MEDS ORDERED: ACET-24 PO (07:47)
[2017-01-01] MEDS ORDERED: LVNIS40 SQ (07:47)
[2017-01-01] MEDS ORDERED: ONDA8TAB12 PO (07:47)
[2017-01-01] MEDS ORDERED: OXYSR10 PO (07:47)
[2017-01-01] MEDS: INSULIN ASPART 100 UNITS/ML 3 ML PEN SC SCH (08:00)
[2017-01-01] MEDS: ENOXAPARIN 40 MG/0.4 ML SYR SQ SCH (08:05)
[2017-01-01] MEDS: OXYCODONE HCL 10 MG TABCR (OXYCONTIN) PO SCH (08:24)
[2017-01-01] MEDS: GABAPENTIN 300 MG CAP PO SCH (08:25)
[2017-01-01] MEDS: LOSARTAN POTASSIUM 50 MG TAB PO SCH (08:25)
[2017-01-01] MEDS: DOCUSATE SODIUM 100 MG CAP PO SCH (08:25)
[2017-01-01] MEDS: ROSUVASTATIN CALCIUM 20 MG TAB PO SCH (08:25)
[2017-01-01] MEDS: FELODIPINE 5 MG TABCR PO SCH (08:26)
[2017-01-01] MEDS: FERROUS GLUCONATE 324 MG TAB PO SCH (08:26)
[2017-01-01] MEDS: EZETIMIBE 10MG TAB PO SCH (08:26)
[2017-01-01] MEDS: PANTOprazole SOD 40 MG TAB PO SCH (08:26)
[2017-01-01] MEDS: MULTIVITAMIN TAB PO SCH (08:27)
[2017-01-01] MEDS: CHOLECALCIFEROL 1000 INTER.UNIT TAB PO SCH (08:27)
[2017-01-01] MEDS: FLUOXETINE HCL 20 MG CAP PO SCH (08:27)
[2017-01-01] MEDS: ASPIRIN 81 MG ECTAB PO SCH (08:28)
[2017-01-01] MEDS: IPRATROPIUM BROMIDE/ALBUTEROL respimat INH INH SCH (08:28)
[2017-01-01] MEDS: FLUTICASONE HFA 110MCG INHALER INH SCH (08:29)
[2017-01-01 08:42] VITALS: BP 105/64; PULSE 74; TEMP 37; O2SAT 91
[2017-01-01] MEDS ORDERED: oxygen (09:11)
--- NOTE | 2017-01-01 09:17 | Discharge Instructions ---
Discharge Instructions Date of Service Jan 01, 2017. Admission Reason for Admission: Bilateral Knee Osteoarthritis Discharge Discharge Diagnosis / Problem: B/L knee TKA Discharge Goals Goal(s): Therapeutic intervention Activity Recommendations Activity Limitations: per Instructions/Follow-up section . Instructions / Follow-Up Instructions / Follow-Up Please see Dr. Rome for hospital follow up and BP recheck Please do not take HCTZ/hydrochlorothiazide until after you have been seen by Dr. Rome Current Hospital Diet Patient's current hospital diet: Diabetes Type 2 Diet Discharge Diet Recommended Diet: Diabetes Type 2 Diet Procedures Procedures Performed: Bilateral Total Knee Arthroplasty, Cemented Pending Studies Studies pending at discharge: no Laboratory Results Hemoglobin A1c Test 12/21/16 10:55 Range/Units Estimated Average Glucose 134 mg/dl Hemoglobin A1c 6.3 H 4.5-5.6 % Medical Emergencies . Who to Call and When: Medical Emergencies: If at any time you feel your situation is an emergency, please call 911 immediately. . Non-Emergent Contact Non-Emergency issues call your: Primary Care Provider . . "Provider Documentation" section prepared by Tasha Brown. . VTE Core Measure Inpt VTE Proph given/why not?: Enoxaparin (Lovenox)SQ (40mg subcutaneous daily x 2 weeks), T.E.D. Stockings, SCD's
[2017-01-01 10:48] VITALS: BP 105/64; PULSE 74; TEMP 37; O2SAT 91
--- NOTE | 2017-01-10 09:04 | Discharge Summary ---
Orthopedic Discharge Summary Admission Date/Reason Dec 29, 2016 at 06:30 Bilateral Knee Osteoarthritis. Discharge Date/Disposition Jan 01, 2017 Home with services Diagnosis Principal Diagnosis: Bilateral Knee Djd Secondary Diagnoses/Problems: (1) Benign hypertension (2) Bilateral tubal ligation (3) Contusion of knee, left (4) Contusion of left knee (5) Diabetes mellitus (6) Dyslipidemia (7) GERD (gastroesophageal reflux disease) (8) Hypothyroidism (9) Left knee sprain (10) Left knee sprain (11) Myocardial infarction (12) PNA (pneumonia) (13) Pneumonia (14) spinal surgery (15) Tonsillectomy Procedure(s) Performed Bilateral TKA Consultations [facility]ELVIN/Dr. Moreno Medication Reconciliation New Medications: Ondansetron Hcl (Zofran) 8 Mg Tab 8 MG PO Q8 PRN for Nausea or Vomiting, #20 TAB [oxygen] () Please provide patient with oxygen, tubing, nasal canula. Requires 1 L oxygen with exertion. 30 days supply Diagnosis: hypoxia, COPD Acetaminophen (Sb Non-Aspirin Extra Stre) 500 Mg Tab 1000 MG PO Q8 for 30 Days, TAB Enoxaparin (Enoxaparin Sodium) 40 Mg/0.4 Ml Inj 40 MG SQ Q24H, #10 Oxycodone HCl (Oxycontin) 10 Mg Tabcr 10 MG PO Q12, #20 Oxycodone HCl (Oxycodone HCl) 5 Mg Tab 5-10 MG PO Q4-6 PRN for Pain, #60 TAB Continued Medications: Albuterol (Proair Hfa) Aers 2 PUFFS INH QID PRN for Shortness of Breath Aspirin (Aspirin Chewable) 81 Mg Chew 162 MG PO QAM Cholecalciferol (Vitamin D) 1,000 Inter.unit Tab 1000 INTER.UNIT PO QAM, TAB Ezetimibe (Zetia) 10 Mg Tab 10 MG PO QAM, TAB Felodipine (Plendil) 5 Mg Tabcr 5 MG PO QAM, TAB Fluoxetine (Prozac) 40 Mg Cap 40 MG PO QAM, CAP Fluticasone Propionate (Flovent Hfa) 120 Puffs/77641 Mcg Aero 2 PUFFS INH BID PRN for Shortness of Breath, INHALER Gabapentin (Neurontin) 300 Mg Cap 300 MG PO TID, CAP Levothyroxine Sodium (Levothyroxine Sodium) 25 Mcg Tab 25 MCG PO QAM, TAB Losartan Potassium (Cozaar) 50 Mg Tab 50 MG PO QAM, TAB Nitroglycerin (Nitrostat) 0.4 Mg Tab 0.4 MG UT UD PRN for Chest Pain, BTL PLACE ONE TABLET UNDER THE TONGUE EVERY 5 MINUTES FOR UP TO 3 DOSES OVER 15 MINUTES IF NEEDED FOR CHEST PAIN Omeprazole (Prilosec) 20 Mg Capcr 20 MG PO DAILY PRN for Reflux, CAP Rosuvastatin Calcium (Crestor) 40 Mg Tab 40 MG PO QAM, TAB Triamcinolone Acet (Triamcinolone Acetonide) 45 Appln/15 Gm Cr 1 APPLN TOP BID PRN for Affected Skin Folds for 30 Days, #30 GM Discontinued Medications: Acetaminophen (Tylenol) 500 Mg Tab 2 TAB PO Q8 PRN for Pain for 3 Days, #10 TAB Hydrochlorothiazide (Hctz) 50 Mg Tab 50 MG PO QAM, TAB Tramadol (Ultram) 50 Mg Tab 50 MG PO QID PRN for Pain, TAB PRN PAIN Admission Physical Exam As per Admitting History & Physical. Hospital Course The Patient had essentially an uneventful hospital course. She did drop her O2 Sat level one evening and was placed back on O2. A trial was planned for possible home O2 if needed however patient refused and her O2 sats remained stable. Labs remained stable- lowest hemoglobin recorded: 8.8. Pain controlled on oral medications. Participated in PT with ambulation distance of 250 feet. ROM of operative knee reached 93 degrees of the right knee and 98 degrees of the leftknee. Drainage output totaled 325cc left knee, 650cc right knee prior to discontinuation. Patient did not have a reported bowel movement. Incision remained clean/dry/intact. DVT prophylaxis with Aspirin EC 81mg BID x 30 days/Mitchell stockings. Patient discharged home with Home Health Services in stable condition. Please refer to daily progress notes for further details. Discharge Instructions Please refer to the electronic Patient Visit Report (Discharge Instructions) for additional information.
== END 2017-01-01 11:30 | disposition home health service (06) | DRG 462 ==
LOC: C.ACU 06:23 → C.3E 06:30 → ENRESERV 11:24
PROVIDERS: ADMIT Orthopaedic Surgery; ATTEND Orthopaedic Surgery
PROC: 0SRD0J9 Replacement of Left Knee Joint with Synthetic Substitute, Cemented, Open Approach (ICD-10-PCS; principal; 2016-12-29 08:00)
PROC: 0SRC0J9 Replacement of Right Knee Joint with Synthetic Substitute, Cemented, Open Approach (ICD-10-PCS; principal; 2016-12-29 08:00)
DX: M17.0 Bilateral primary osteoarthritis of knee (principal); R09.02 Hypoxemia; I11.9 Hypertensive heart disease without heart failure; E11.9 Type 2 diabetes mellitus without complications; E03.9 Hypothyroidism, unspecified; E78.5 Hyperlipidemia, unspecified; I25.2 Old myocardial infarction; I25.10 Atherosclerotic heart disease of native coronary artery without angina pectoris; K21.9 Gastro-esophageal reflux disease without esophagitis; F17.200 Nicotine dependence, unspecified, uncomplicated; Z51.81 Encounter for therapeutic drug level monitoring; Z79.899 Other long term (current) drug therapy; Z79.82 Long term (current) use of aspirin

== ENCOUNTER 2017-08-05 08:12 | Emergency (ER) | payer OTHER ==
[~2017-08-05] VITALS: Ht 157.5 cm; Wt 112.3 kg
[~2017-08-05 08:12] MED LIST changes: -ACET-1256 PO; +ACET-24 PO; -ACETAMINOPHEN 500 MG TAB PO SCH; -ASPCH81X PO; -CEFAZOLIN 2000 MG/60 ML D5W 60 ML IV SCH; -CeleBREX 200 MG CAP PO SCH; -DEXAMETHASONE 4 MG TAB PO SCH; -EZET10TA63 PO; -FAMOTIDINE 20 MG TAB PO SCH; -FELO5TAB PO; -FLUO40CA8 PO; -FLVHFA110 INH; -GABA-113 PO; -GABAPENTIN 300 MG CAP PO SCH; -HYDR50TA3 PO; -LACTATED RINGER'S 1000ML 1,000 ML IV SCH; -LACTATED RINGER'S 1000ML 500 ML IV ONE; -LEVO25TA5 PO; -LOSA50TA6 PO; +LVNIS40 SQ; -METOCLOPRAMIDE HCL 10 MG TAB PO SCH; -NTRGSL/4 UT; -OMEP20CA59 PO; +OXYSR10 PO; -ROPIVACAINE 5MG/ML 30 ML 150 MG, BUPIVACAINE/EPINEPHR 0.5% MPF 30 ML, KETOROLAC TROMETH... INFIL SCH; -ROSU40TA PO; +RXC5 PO; -TRAM-10 PO; -TRMCR515 TOP; +oxygen
[2017-08-05 08:17] VITALS: TEMP 36.5; Ht 157.5 cm; Wt 112.3 kg
[2017-08-05] MEDS ORDERED: XYLOCAINE 1%/SOD BICARB 20 ML VIAL INFIL ONE (08:30)
[2017-08-05] MEDS ORDERED: ALBU18002 INH (08:38)
[2017-08-05] MEDS ORDERED: CHOL1000 PO (08:38)
[2017-08-05] MEDS ORDERED: SOLI5TAB2 PO (08:39)
--- NOTE | 2017-08-05 08:47 | EMERGENCY ROOM VISIT NOTE ---
History Report prepared by Nichole: Nissa Romero Under the Supervision of: Dr. Concha Kaur M.D. First contact with patient: 08:22 Chief Complaint: LACERATION/CUT (SUT/DERMABOND) Stated Complaint: FALL/LACERATION ON FOREHEAD History of Present Illness The patient is a 72 year old female who presents to the Emergency Room with complaints of an episodic fall at 0730 this morning. She states that she lost her balance and fell face forward into her night stand. She reports a wound between her eyes. She reports her pain is a 10/10 in severity. She denies any LOC. She was able to get herself back up without assistance. She has a headache , though denies any vomiting. She notes right hand and right wrist pain. She believes she may have smacked her hand when she fell. She does not use a walker to ambulate. She takes baby Aspirin. She has a history of DM and reports that she has not eaten this morning nor checked her sugar. She is a current smoker. She reports her tetanus shot is up-to-date. Source of History: patient Onset: 0730 this morning Position: other (global ) Symptom Intensity: 10/10 Quality: other (fall) Timing: other (episodic) Associated Symptoms: + headache, No LOC, No vomiting Note: She notes a wound between her eyes. She notes right hand and right wrist pain. Review of Systems See HPI for pertinent positives & negatives. A total of 10 systems reviewed and were otherwise negative. Past Medical & Surgical Medical Problems: (1) CAD (coronary artery disease) (2) Carotid stenosis, asymptomatic (3) DM (diabetes mellitus) (4) Dyslipidemia (5) Dyslipidemia (6) GERD (gastroesophageal reflux disease) (7) HTN (hypertension) (8) Hypothyroidism (9) Hypothyroidism (10) Vascular disease Surgical Problems: (1) History of back surgery Family History Gynecological problem (cancer) SISTER Social History Smoking Status: Current Every Day Smoker (3/4 of a ppd) Alcohol Use: none Drug Use: none Marital Status: single Housing Status: lives with family Current/Historical Medications Scheduled Acetaminophen (Sb Non-Aspirin Extra Stre), 1,000 MG PO Q8 Aspirin (Aspirin Chewable), 162 MG PO QAM Cholecalciferol (Vitamin D3), 1 TAB PO DAILY Ezetimibe (Zetia), 10 MG PO QAM Felodipine (Plendil), 5 MG PO QAM Fluoxetine (Prozac), 40 MG PO QAM Gabapentin (Neurontin), 300 MG PO TID Levothyroxine Sodium (Levothyroxine Sodium), 25 MCG PO QAM Losartan Potassium (Cozaar), 50 MG PO QAM Rosuvastatin Calcium (Crestor), 40 MG PO QAM Solifenacin Succinate (Vesicare), 5 MG PO DAILY Scheduled PRN Albuterol Sulfate (Proair Respiclick), 2 PUFF INH QID PRN for Shortness of Breath Fluticasone Propionate (Flovent Hfa), 2 PUFFS INH BID PRN for Shortness of Breath Nitroglycerin (Nitrostat), 0.4 MG UT UD PRN for Chest Pain Omeprazole (Prilosec), 20 MG PO DAILY PRN for Reflux Triamcinolone Acet (Triamcinolone Acetonide), 1 APPLN TOP BID PRN for Affected Skin Folds Allergies Coded Allergies: NSAIDs (Verified Adverse Reaction, Intermediate, Affected kidneys, 08/05/17) Physical Exam Vital Signs Date Time Temp Pulse Resp B/P (MAP) Pulse Ox O2 Delivery O2 Flow Rate FiO2 08/05/17 11:35 67 17 179/94 96 08/05/17 08:17 36.5 75 18 204/99 97 Room Air Physical Exam Vital signs reviewed. General: Chronically ill-appearing, in no significant distress. Smells of tobacco. HEENT: No scleral icterus, PERRLA, neck supple. 2 cm linear laceration along medial right orbital ridge. Left subconjunctival hemorrhage with periorbital ecchymosis. Non-tender to palpation cervical spine. Cardiovascular: Regular rate and rhythm, no extra sounds. Pulmonary: Faint scattered wheezes, normal work of breathing. Abdomen: Soft, nontender, nondistended, positive bowel sounds. Musculoskeletal: No peripheral edema. Some discomfort of dorsal aspect of left hand, no swelling. Mild abrasion to left knee. Neurologic: Patient awake alert and oriented x 3 Skin: Warm, dry, no rash Medical Decision & Procedures ER Provider Diagnostic Interpretation: Radiology results as stated below per my review and radiologist interpretation: CT HEAD WITHOUT CONTRAST (CT) CLINICAL HISTORY: Head trauma. Head pain. Laceration. COMPARISON STUDY: No previous studies for comparison. TECHNIQUE: Axial CT of the brain is performed from the vertex to the skull base. IV contrast was not administered for this examination. A dose lowering technique was utilized adhering to the principles of ALARA. CT DOSE: 537.48 mGy.cm FINDINGS: No intra or extra-axial mass lesions are visualized. There is no CT evidence of acute cortical infarction. There is no evidence of midline shift. There is no acute hemorrhage. No calvarial fractures are visualized. There are patchy white matter hypodensities likely on a small vessel basis. There is no evidence of pathologic ventricular dilatation. There is no evidence of acute sinusitis. There is mild right frontal scalp edema. There is a suspected laceration in the region of the nose. IMPRESSION: No acute intracranial findings Electronically signed by: Augusto Pink M.D. 08/05/2017 9:24 AM Dictated Date/Time: 08/05/2017 9:22 AM LEFT HAND 3 VIEWS CLINICAL HISTORY: Left hand pain. Laceration. FINDINGS: 3 views of the left hand are obtained. No prior studies are available for comparison at the time of dictation. The skeletal structures are osteopenic. No fracture is seen. Mild to moderate osteoarthritic change is present at the first carpometacarpal joint where there is bony overgrowth and subluxation. Mild osteoarthritic changes also seen involving the interphalangeal joints, distal greater than proximal. No erosive disease is identified. Mild dorsal soft tissue swelling is noted. No radiodense foreign body is identified. IMPRESSION: 1. Mild dorsal soft tissue swelling with no radiographic evidence of left hand fracture. 2. Osteopenia and arthritic change as above. Electronically signed by: Deon Sanchez M.D. 08/05/2017 10:01 AM Dictated Date/Time: 08/05/2017 10:00 AM Laboratory Results Test 08/05/17 08:32 Bedside Glucose 127 mg/dl (70-90) Laboratory results per my review. Medications Administered Medications (Trade) Dose Ordered Sig/Shivani Route Start Time Stop Time Status Last Admin Dose Admin Tetracaine/ Epinephrine/ Lidocaine (L.e.t. Gel 4%/ 1:100/0.5%) 1 ea NOW STAT EXT 08/05/17 10:12 08/05/17 10:13 DC 08/05/17 10:12 1 ED Course 08: Past medical records reviewed. The patient was evaluated in room B9. A complete history and physical examination was performed. 0830: Ordered Lidocaine HCl 20 ml INFIL 1012: Ordered Tetracaine/Epinephrine/Lidocaine 1 ea EXT 1119: I reassessed the patient at this time. She is feeling better and resting comfortably. I discussed the results and treatment plan with the patient. I answered all pertaining questions that she had. She expressed understanding and verbalized agreement. The patient will be discharged home. Medical Decision Differential diagnoses include: Intracranial injury, cervical spine injury, intrathoracic injury, intra- abdominal injury, musculoskeletal injury. This patient was evaluated and appeared to be in no significant distress. Glucose was evaluated and is 127. CT scan of the head was obtained and are negative for acute injuries. X-ray of the left hand is negative for acute fracture. Let gel was applied to the facial laceration the wound was approximated by Gaby Laughlin PA-C. Please see her notes for further detail. Patient was reevaluated and feeling improved. Her tetanus status is up-to- date. She was given wound care instructions and will return to the ER for worsening of symptoms or any medical concerns. Medication Reconcilliation Current Medication List: was personally reviewed by me Blood Pressure Screening Patient's blood pressure: Elevated blood pressure Blood pressure disposition: Elevated BP felt to be situational Impression Primary Impression: Facial laceration Additional Impression: Closed head injury Scribe Attestation The scribe's documentation has been prepared under my direction and personally reviewed by me in its entirety. I confirm that the note above accurately reflects all work, treatment, procedures, and medical decision making performed by me. Departure Information Dispostion Home / Self-Care Referrals Sy Rome M.D. (PCP) Forms HOME CARE DOCUMENTATION FORM, IMPORTANT VISIT INFORMATION Patient Instructions ED Head Injury Closed, My [facility] Additional Instructions Diagnosis: Facial laceration, closed head injury Read head injury handout and return for any symptoms. Keep wound clean and dry. No water on the area for 12-24 hrs then no soaking until sutures removed. Do not allow any crusting or dried blood to accumulate on sutures. If this occurs, use a 1:1 solution of hydrogen peroxide/water on a Q-tip to clean the wound. Use an antibiotic ointment for 3 days, then let wound dry. Suture removal in 5-7 days. Follow up sooner for any signs of infection (increasing redness, swelling, drainage, fever). Ice for swelling. Tylenol 650 mg every 6 hrs for pain (Maximum 3000 mg Tylenol in 24 hr period). Keep covered when in sun until sutures removed then SPF 50 or higher for one year. Vitamin E oil if desired two weeks after suture removal for reduction of scar. Problem Qualifiers
--- NOTE | 2017-08-05 09:25 | DIAGNOSTIC IMAGING REPORT ---
CT HEAD WITHOUT CONTRAST (CT) CLINICAL HISTORY: Head trauma. Head pain. Laceration. COMPARISON STUDY: No previous studies for comparison. TECHNIQUE: Axial CT of the brain is performed from the vertex to the skull base. IV contrast was not administered for this examination. A dose lowering technique was utilized adhering to the principles of ALARA. CT DOSE: 537.48 mGy.cm FINDINGS: No intra or extra-axial mass lesions are visualized. There is no CT evidence of acute cortical infarction. There is no evidence of midline shift. There is no acute hemorrhage. No calvarial fractures are visualized. There are patchy white matter hypodensities likely on a small vessel basis. There is no evidence of pathologic ventricular dilatation. There is no evidence of acute sinusitis. There is mild right frontal scalp edema. There is a suspected laceration in the region of the nose. IMPRESSION: No acute intracranial findings Electronically signed by: Augusto Pink M.D. 08/05/2017 9:24 AM Dictated Date/Time: 08/05/2017 9:22 AM
--- NOTE | 2017-08-05 10:03 | DIAGNOSTIC IMAGING REPORT ---
LEFT HAND 3 VIEWS CLINICAL HISTORY: Left hand pain. Laceration. FINDINGS: 3 views of the left hand are obtained. No prior studies are available for comparison at the time of dictation. The skeletal structures are osteopenic. No fracture is seen. Mild to moderate osteoarthritic change is present at the first carpometacarpal joint where there is bony overgrowth and subluxation. Mild osteoarthritic changes also seen involving the interphalangeal joints, distal greater than proximal. No erosive disease is identified. Mild dorsal soft tissue swelling is noted. No radiodense foreign body is identified. IMPRESSION: 1. Mild dorsal soft tissue swelling with no radiographic evidence of left hand fracture. 2. Osteopenia and arthritic change as above. Electronically signed by: Deon Sanchez M.D. 08/05/2017 10:01 AM Dictated Date/Time: 08/05/2017 10:00 AM
[2017-08-05] MEDS ORDERED: LIDOCAINE/EPINEPH/TETRACAINE 1 EA SYR EXT STA (10:12)
[2017-08-05] MEDS ORDERED: NTRGSL/4 UT (10:51)
[2017-08-05] MEDS ORDERED: TRMCR515 TOP (11:21)
[2017-08-05 11:35] VITALS: BP 179/94; PULSE 67; O2SAT 96
[2017-08-05] MEDS ORDERED: FLUO40CA8 PO (14:57)
[2017-08-05] MEDS ORDERED: FLVHFA110 INH (14:57)
[2017-08-05] MEDS ORDERED: OMEP20CA59 PO (14:57)
[2017-08-05] MEDS ORDERED: EZET10TA63 PO (14:57)
[2017-08-05] MEDS ORDERED: ROSU40TA PO (14:57)
[2017-08-05] MEDS ORDERED: LOSA50TA6 PO (14:57)
[2017-08-05] MEDS ORDERED: FELO5TAB PO (14:57)
[2017-08-05] MEDS ORDERED: ASPCH81X PO (14:57)
[2017-08-05] MEDS ORDERED: LEVO25TA5 PO (14:57)
[2017-08-05] MEDS ORDERED: GABA-113 PO (14:57)
--- NOTE | 2017-08-05 17:47 | EMERGENCY ROOM VISIT NOTE ---
ED Visit Note I was approached by Dr. Kaur to repair a facial laceration. Please see her dictation regarding management and care. There is a 2cm laceration in the transverse plane of the forehead between the nose and eye on the right. Verbal consent was obtained to perform the procedure. LET gel was applied to the wound and allowed to sit for approximately 30 minutes with appropriate anesthesia. Using sterile technique the wound was cleaned with Betadine. The area was sterilely draped. The wound was copiously irrigated under pressure with sterile saline. The wound was explored and there were no deep structures injured such as tendons, bone, or significant blood vessels. The laceration was repaired using 5 simple interrupted 6-0 nylon sutures with the wound edges being well approximated. The patient tolerated the procedure well. Hemostasis was achieved. The area was cleaned with sterile saline and dressed with bacitracin ointment and bandage.
== END 2017-08-05 11:36 | disposition home or self-care (01) ==
LOC: C.EDB 08:16
DX: S01.81XA Laceration without foreign body of other part of head, initial encounter (principal); S09.90XA Unspecified injury of head, initial encounter; W19.XXXA Unspecified fall, initial encounter; I25.10 Atherosclerotic heart disease of native coronary artery without angina pectoris; E11.9 Type 2 diabetes mellitus without complications; E78.5 Hyperlipidemia, unspecified; K21.9 Gastro-esophageal reflux disease without esophagitis; I10 Essential (primary) hypertension; I99.9 Unspecified disorder of circulatory system; F17.200 Nicotine dependence, unspecified, uncomplicated; Z79.82 Long term (current) use of aspirin

== ENCOUNTER → 2017-11-08 | Day surgery (SDC) | payer OTHER ==
[2017-10-26 15:29] VITALS: Ht 157.5 cm; Wt 110.0 kg
[~2017-11-08] VITALS: Ht 157.5 cm; Wt 110.0 kg
[~2017-11-08] MED LIST changes: +500ML BSS 0.3ML EPI 1:1000PF IRRIG ONE; -ACET-24 PO; +ACETAMINOPHEN 325 MG TAB PO PRN; +ALBU18002 INH; -ALBU1AER9 INH; +AMVISC PLUS 0.8ML SYRINGE INT OCU ONE; +ASPCH81X PO; +ATROPINE SULFATE 0.1 MG/ML 5ML SYR IV PRN; +BSS FLUSH ONE; -CHOL100010 PO; +EZET10TA63 PO; +EpINEphrine INJ 1MG/ML AMP 1 MG/ML AMP ONE; +FELO5TAB PO; +FENTANYL CITRATE INJ 50 MCG/1 ML 2 ML VIAL ONE; +FLUO40CA8 PO; +FLVHFA110 INH; +LACTATED RINGER'S 1000ML 500 ML IV SCH; +LEVO25TA5 PO; +LIDOCAINE 3.5% OPH GEL PER APPLICATION CHARGE ONE; +LIDOCAINE HCL 1% MPF 2 ML VIAL ONE; +LOSA50TA6 PO; -LVNIS40 SQ; +MIDAZOLAM HCL 1 MG/ML 2ML VIAL ONE; +NTRGSL/4 UT; +OCUCOAT 1 ML SOLN IO ONE; +OMEP20CA9 PO; -OXYSR10 PO; +POVIDONE-IODINE OP SOLN 30 ML BTL ONE; +PROPARACAINE 0.5% OP SOLN PER DROP CHARGE OPR SCH; +ROSU40TA PO; -RXC5 PO; +SOLI5TAB2 PO; +TOBRAMYCIN/DEXAMETHASONE OPH OINT PER APPLN CHARGE ONE; +TRMCR515 TOP; -oxygen
[2017-11-08] MEDS: PHENYLEPHRINE HCL 2.5% OP SOLN PER DROP CHARGE OPR SCH ×2 (06:40→06:47)
[2017-11-08] MEDS: TROPICAMIDE 1% OP SOLN PER DROP CHARGE OPR SCH ×2 (06:41→06:48)
[2017-11-08] MEDS: CYCLOPENTOLATE HCL 1% OP SOLN PER DROP CHARGE OPR SCH ×2 (06:42→06:49)
[2017-11-08] MEDS: KETOROLAC 0.5% OP SOLN PER DROP CHARGE OPR SCH ×2 (06:43→06:50)
[2017-11-08] MEDS: GATIFLOXACIN OP SOLN PER DROP CHARGE OPR SCH ×2 (06:45→06:52)
--- NOTE | 2017-11-08 07:55 | [facility] Operative Report ---
Operative Report Date of Service November 08, 2017. Operative Report 1. PREOPERATIVE DIAGNOSIS: Cataract of the right eye. 2. POSTOPERATIVE DIAGNOSIS: Same. 3. PROCEDURE: Phacoemulsification with intraocular lens implantation of the right eye. SURGEON: Dr. Uli Griggs. ANESTHESIA: Topical Lidocaine gel, 1% Non- Preserved intracameral Lidocaine, and monitored intravenous sedation. INDICATIONS FOR THE PROCEDURE: The patient is a 72 - year-old female with a history of cataract of the right eye causing significant visual impairment. The details of the proposed procedure were explained to the patient who asked appropriate questions and following discussion of all risks, benefits and alternatives agreed to have the procedure done. 4. OPERATION AND FINDINGS: DESCRIPTION OF PROCEDURE: After informed consent was obtained, the patient was brought to the Operating Room at the [facility]. The patient was placed in a supine position and then the right eye was prepped and draped in the usual sterile fashion for intraocular surgery. A drop of topical Lidocaine gel was placed in the operative eye. A wire lid speculum was then placed in the fornices. A corneal paracentesis was then created temporally. The Non-Preserved Lidocaine was then instilled into the anterior chamber. The anterior chamber was then pressurized with viscoelastic. A 2.0 mm clear corneal incision was then created temporally. A cystotome was inserted into the anterior chamber and used to create a tear in the anterior lens capsule. This capsular tear was then used to create a small flap and the flap was dragged in a counterclockwise direction in order to create a continuous curvilinear capsulorrhexis. Hydrodissection was accomplished with balanced salt solution. Phacoemulsification of the lens nucleus was then performed in a standard [id number]-yuxzakw technique. The phaco time was 18 seconds with an average power of 14 %. The remaining cortical material was removed using irrigation aspiration. The capsular bag was then filled with viscoelastic. A [employer] MI60L +22.0 diopters lens was then loaded into the injector and injected into the capsular bag. The remaining viscoelastic was removed with the irrigation aspiration handpiece. The wound was hydrated and then checked and found to be watertight. The intraocular pressure was checked and found to be adequate. The wire lid speculum was removed and the patient's face was cleaned and dried. TobraDex ointment was placed in the inferior fornix. The patient was discharged to the Recovery Room having tolerated the procedure well. There were no complications. The patient will be seen tomorrow in the office for follow-up. I attest to the content of the Intraoperative Record and any orders documented therein. Any exceptions are noted below.
--- NOTE | 2017-11-08 07:56 | Discharge Instructions-SurgCtr ---
Discharge Instructions Date of Service November 08, 2017. Visit Reason for Visit: Right Cataract Discharge Discharge Diagnosis / Problem: cataract Discharge Goals Goal(s): Improve function Activity Recommendations Activity Limitations: per Instructions/Follow-up section Anesthesia . Post Anesthesia Instructions: If you have had General Anesthesia or IV Sedation: * Do not drive today. * Resume driving when surgeon permits. * Do not make important decisions or sign legal documents today. * Call surgeon for: 1. Temperature elevations greater than 101 degrees F. 2. Uncontrollable pain. 3. Excessive bleeding. 4. Persistent nausea and vomiting. 5. Medication intolerance (nausea, vomiting or rash). * For nausea and vomiting use only clear liquids such as: tea, soda, bouillon until nausea subsides, then gradually increase diet as tolerated. * If you have any concerns or questions, call your surgeon's office. If physician is unavailable and it is an emergency, call 911 or go to the nearest emergency room. . Diet Recommendations Home Diet: resume previous diet Procedures Procedures Performed: Right Cataract Phacoemulsification With Intraocular Lens Implant Pending Studies Studies pending at discharge: no Medical Emergencies . Who to Call and When: Medical Emergencies: If at any time you feel your situation is an emergency, please call 911 immediately. . Non-Emergent Contact Non-Emergency issues call your: [employer] . . "Provider Documentation" section prepared by Uli Griggs. .
[2017-11-08 08:25] VITALS: BP 145/77; PULSE 55; TEMP 36.4; O2SAT 95
--- NOTE | 2017-11-08 08:27 | Anesthesia Progress Nt - [facility] ---
Anesthesia Post Op Note Date & Time November 08, 2017 at 08:27 Vital Signs Pain Intensity: 0 Vital Signs Past 12 Hours Date Time Temp Pulse Resp B/P (MAP) Pulse Ox O2 Delivery O2 Flow Rate FiO2 11/08/17 07:57 36.2 53 16 123/59 (80) 95 Room Air 11/08/17 06:29 36.4 61 16 138/82 (100) 96 Room Air Notes Mental Status: alert / awake / arousable, participated in evaluation Pt Amnestic to Procedure: Yes Nausea / Vomiting: adequately controlled Pain: adequately controlled Airway Patency, RR, SpO2: stable & adequate BP & HR: stable & adequate Hydration State: stable & adequate Anesthetic Complications: no major complications apparent
== END | disposition home or self-care (01) ==
LOC: X.SURG 06:06
PROVIDERS: ATTEND Ophthalmology
DX: H26.9 Unspecified cataract (principal); E78.2 Mixed hyperlipidemia; E66.01 Morbid (severe) obesity due to excess calories; E03.9 Hypothyroidism, unspecified; E55.9 Vitamin D deficiency, unspecified; F17.200 Nicotine dependence, unspecified, uncomplicated; E11.9 Type 2 diabetes mellitus without complications; I25.10 Atherosclerotic heart disease of native coronary artery without angina pectoris; I10 Essential (primary) hypertension; I25.2 Old myocardial infarction; I65.23 Occlusion and stenosis of bilateral carotid arteries; J44.9 Chronic obstructive pulmonary disease, unspecified; M17.10 Unilateral primary osteoarthritis, unspecified knee; Z85.42 Personal history of malignant neoplasm of other parts of uterus; Z79.82 Long term (current) use of aspirin; Z88.6 Allergy status to analgesic agent